=== PATIENT | female | born 1940 | race Caucasian/White ===

== ENCOUNTER 2017-09-22 14:51 | Emergency (ER) | payer MEDICARE, OTHER ==
[2017-09-22] MEDS ORDERED: Bacitracin Zinc 1 Packet ONE (15:18)
[2017-09-22] MEDS ORDERED: Adacel (T-DAP) 0.5 ML VIAL ONE (15:59)
--- NOTE | 2017-09-22 16:43 | RAD ---
THREE VIEWS OF THE LEFT HAND 09/22/17 COMPARISON: None. HISTORY: Trauma, pain. FINDINGS: There is a dislocation of the first MCP joint. The first proximal phalanx is dislocated laterally, an d proximally with respect to the head of the first metacarpal. Post reduction imaging is advised. The re is no displaced fracture. The bones appear demineralized. IMPRESSION: Dislocation of the first metacarpophalangeal joint. POS: [facility]
--- NOTE | 2017-09-22 16:43 | RAD ---
RIGHT KNEE FOUR VIEWS: 09/22/17 HISTORY: Injury, right knee pain. FINDINGS/IMPRESSION: No acute fracture or dislocation is identified. POS: [facility]
--- NOTE | 2017-09-22 16:58 | RAD ---
RADIOGRAPH RIGHT ELBOW 4 VIEWS: 09/22/17 at 3:49 p.m. HISTORY: 77-year-old female status post acute trauma to the right elbow. FINDINGS: There is soft tissue swelling containing multiple tiny focal lucencies in the soft tissues, dorsal to the proximal ulnar metadiaphysis. There is moderate to severe DJD at the capitelloradial articulatio n. There is diffuse osteopenia. There is no dislocation. No definite displaced fat pad sign. No fract ure is identified, but the osteopenia and the high grade DJD could mask a mildly displaced or nondisp laced fracture. IMPRESSION: 1. Acute, traumatic, soft tissue hematoma/contusion and probable laceration, at the dorsal proxi mal aspect of the forearm. 2. No dislocation, and no fracture identified. 3. 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 POS: [facility]
[2017-09-22] MEDS ORDERED: Acetaminophen 500 MG TAB ONE (19:15)
--- NOTE | 2017-09-22 21:09 | RAD ---
LEFT THUMB THREE VIEWS: HISTORY: Pain. Dislocation. COMPARISON: 09/22/2017 at 3:43 p.m. FINDINGS: Interval relocation of the previously identified dislocation. There is a plaster splint. A definite fracture is not appreciated. Bone demineralization is identified. IMPRESSION: Interval reduction of previously noted dislocation. POS: [facility]
== END 2017-09-22 23:02 | disposition home or self-care (01) ==
LOC: ERS 14:51
DX: S63.125A Dislocation of interphalangeal joint of left thumb, initial encounter (principal); S61.412A Laceration without foreign body of left hand, initial encounter; S80.01XA Contusion of right knee, initial encounter; E03.9 Hypothyroidism, unspecified; I10 Essential (primary) hypertension; Z79.899 Other long term (current) drug therapy; V89.2XXA Person injured in unspecified motor-vehicle accident, traffic, initial encounter
CPT/HCPCS: 12002; 26641; 90471; 90715

== ENCOUNTER 2018-02-22 10:08 | Outpatient (CLI) | payer MEDICARE, OTHER ==
--- NOTE | 2018-02-22 11:42 | RAD ---
THREE VIEWS LUMBOSACRAL SPINE: Comparison: 09-03-16 History: Low back pain for one year. Patient also has prior surgery with lumbar radiculopathy. FINDINGS: Lateral views of the lumbosacral spine were performed in the neutral, flexion, and extension. The pat ient is status post posterior fusion of L4 and L5 with bilateral pedicle screws. A disc space is seen in good position within the intervening disc space. No perihardware lucency is seen. Alignment is ma intained in flexion and extension. Vascular calcifications are seen in the aorta. IMPRESSION: Post-surgical changes of the lumbar spine with unchanged in alignment with bending. POS: [facility]
--- NOTE | 2018-02-22 12:55 | MRI ---
MRI LUMBAR SPINE NONCONTRAST: DATE: 02/22/18. HISTORY: 77-year-old female with M54.16, lumbar radiculopathy, and low back pain. COMPARISON: 09/03/16. FINDINGS: There are 5 lumbar-type vertebrae. Vertebral body heights are maintained. Mild to moderate disk spa ce narrowing at L4-5. No severe disk space narrowing at any level. No major bone marrow signal abno rmality identified. Multiple bilateral renal lesions, at least the vast majority of which are cysts. T12-L1: Essentially normal. L1-2: The conus medullaris terminates at this level. No high-grade central stenosis or high-grade n eural foraminal stenosis. L2-3: Mild diffuse disk bulge. Mild to moderate ligamentum flavum thickening and degenerative facet hypertrophy. Mild to moderate central spinal canal stenosis. Mild to moderate bilateral neural for aminal stenosis. L3-4: Moderate thickening of ligamentum flavum. Mild to moderate degenerative facet hypertrophy. M ild diffuse disk bulge. Mild to moderate bilateral neural foraminal stenosis. Moderate central spin al canal stenosis. L4-5: Bilateral pedicle screws at L4 and L5. Interbody cage material. Grade I anterolisthesis of L 4 on L5. Probable mild bilateral neural foraminal stenosis. Moderate to severe central spinal canal stenosis and high-grade lateral recess stenosis bilaterally. L5-S1: Severe bilateral degenerative facet hypertrophy. Mild right neural foraminal stenosis and mi ld to moderate left neural foraminal stenosis. No central stenosis. No interval change overall. IMPRESSION: 1. Grade I anterolisthesis of L4 on L5 stabilized by bilateral pedicle screws and interbody cage. 2. Moderate to severe central spinal canal stenosis at L4-5, and moderate central spinal canal steno sis at L3-4. 3. Large number of bilateral renal cysts. 4. No major interval change. LAURA Diehl POS: [facility]
== END 2018-02-22 10:09 | disposition home or self-care (01) ==
LOC: TBSIIMAG 10:08
PROVIDERS: ATTEND Neurological Surgery
DX: M54.16 Radiculopathy, lumbar region (principal); M43.16 Spondylolisthesis, lumbar region; M48.061 Spinal stenosis, lumbar region without neurogenic claudication; N28.1 Cyst of kidney, acquired
CPT/HCPCS: 72100; 72148

== ENCOUNTER 2018-04-30 09:01 | Outpatient (CLI) | payer MEDICARE, OTHER ==
[2018-04-30 11:06] LABS: Mean Corpuscular Hemoglobin 33.2 pg (27.0-31.0); Mean Corpuscular Volume 97.6 fL (78.0-98.0); Platelet Count 209 thou/uL (130-400); RBC Distribution Width 11.9 % (11.5-14.5); Red Blood Cell (RBC) Count 4.52 mill/uL (4.20-5.40); White Blood Cell (WBC) Count 7.1 thou/uL (4.8-10.8)
[2018-04-30 11:16] LABS: Prothrombin Time 13.6 SEC (12.0-14.7)
[2018-04-30 11:23] LABS: Anion Gap 15 mmol/L (10-20); BUN (Urea Nitrogen) 27 mg/dL (9.8-20.1); Calc. Creatinine Clearance 0 mL/min (70-130); Calcium 10.7 mg/dL (7.8-10.44); Carbon Dioxide 22 mmol/L (23-31); Chloride 107 mmol/L (98-107); Estimated GFR-MDRD 39; Glucose 99 mg/dL (83-110); Potassium 4.1 mmol/L (3.5-5.1); Sodium 140 mmol/L (136-145)
--- NOTE | 2018-04-30 13:37 | EKG ---
Test Reason : Blood Pressure : / mmHG Vent. Rate : 063 BPM Atrial Rate : 063 BPM P-R Int : 162 ms QRS Dur : 070 ms QT Int : 402 ms P-R-T Axes : 072 -18 022 degrees QTc Int : 411 ms Normal sinus rhythm Possible Anterior infarct , age undetermined Abnormal ECG Confirmed by MILDRED SHETH ([id number]) on 04/30/2018 1:36:51 PM Referred By: JANEEN Confirmed By:MILDRED SHETH
== END 2018-04-30 09:02 | disposition home or self-care (01) ==
LOC: LABBT 09:01
PROVIDERS: ATTEND Neurological Surgery
DX: Z01.812 Encounter for preprocedural laboratory examination (principal); M47.896 Other spondylosis, lumbar region; M48.061 Spinal stenosis, lumbar region without neurogenic claudication
CPT/HCPCS: 80048; 85027; 85610; 85730; 93005; 93010

== ENCOUNTER 2018-05-17 05:38 | Day surgery (SDC) | payer MEDICARE, OTHER ==
--- NOTE | 2018-05-17 02:20 | HP ---
CHIEF COMPLAINT: Back pain. HISTORY OF PRESENT ILLNESS: Ms. Martinez is a 76-year-old female who presents with low back pain. Dave cosby has seen Dr. Balderrama several times for back pain in the past. For over the past 6 months, she zafar s been experiencing pain in her low back over her SI joints, left greater than right. Does not have any radicular symptoms. The left greater trochanteric bursa has also been very sore when palpated. She has a history of L4-L5 fusion with Dr. Subramanian in 2006. Her pain is made better by lying down o r sitting. She has significant pain going on. The patient has a history of L4-L5 fusion with Dr. Kal wilder in 2006. Her pain is made better by lying or sitting down. She has significant pain going fr om sitting to standing position. She has had PT about 7 years ago and has had many IDALMIS injections fo r her low back pain from Dr. Mejia, which helped significantly. When she stands for a long perio d of time, she has minimal pain in the gluteal muscles bilaterally, but the pain that makes her sit d own comes from the low back and SI joints. REVIEW OF SYSTEMS: Ten point review of systems completed, which is otherwise negative than stated ab ove. PAST MEDICAL HISTORY: Hypertension, hyperlipidemia, hypothyroidism, multiple sclerosis, Christiano's thyroiditis, high blood pressure, vitamin D deficiency, stroke in 10/2000. PAST SURGICAL HISTORY: Lumbar fusion in [address] Subramanian, left revision shoulder replacement in 2010, right hip replacement in 2009, right medial and lateral mastectomy, grade II chondromalacia, me niscectomy in 2010 and right lateral meniscectomy in 2015. FAMILY HISTORY: Father is . Mother is . Family history of hypertension, cancer. SOCIAL HISTORY: The patient is a nonsmoker. She does not drink alcohol or use any other illicit ilene gs. She is and has 2 children. 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 MEDICATIONS: Ibuprofen, potassium bicarbonate, citric acid, Synthroid, Toprol, Benicar, vitamin B12, and sodium. ALLERGIES: BACTRIM, BENADRYL, CELEBREX, CODEINE SULFATE, DILANTIN, LIPITOR, LORTAB ULTRAM. PHYSICAL EXAMINATION: HEENT: Head is normocephalic, atraumatic. Hearing is intact. Moist mucous membranes. Trachea is m idline. No masses are noted. EYES: Pupils are equal, round, reactive to light. Extraocular movements are intact. Sclerae is not injected, nonicteric. PSYCHIATRIC: Normal mood and affect. PULMONARY: Normal work of breathing room air. CARDIOVASCULAR: Regular rate and rhythm. MUSCULOSKELETAL: Lower extremities, 5/5 strength in bilateral iliopsoas, quadriceps, hamstrings, rig ht tibialis anterior and extensor hallucis longus. No sensory deficits bilaterally. Very tender to palpation on the left greater than right SI joints and right greater trochanteric bursa. Gait and st ation, patient is only able to stand for 1-2 minutes before onset of the gluteal pains. Motor exam: There is normal strength. Sensory exam: Stocking distribution sensory alteration bilateral. NEUROLOGIC: Patient is alert and oriented. Cranial nerves II through XII are grossly intact. Speec h is fluent. Answers questions appropriately. IMAGING DATA: MRI monitored lateral recess stenosis L3-L4, severe lateral recess stenosis at L4-5, p rior instrumentation, L4-L5 without decompression. X-rays, no instability. ASSESSMENT: Spondylosis without myelopathy, radiculopathy, lumbar region, spinal stenosis in lumbar region without neurogenic claudication. PLAN: Dr. Balderrama has offered laminectomy L3 through 5. Informed consent again discussed indicati ons, risks, benefits, alternatives, and expected results from surgery. The risks discussed included, but are not limited to bleeding, infection, CSF leak, nerve damage, weakness, incontinence, cauda eq uina injury, arachnoiditis, paralysis, ventilator dependence, wheelchair dependence, loss of vision, cardiopulmonary complications of anesthesia or , long-term complications discussed included, bu t were not limited to spinal instability and future surgery. Patient understands the risks and is wi lling to proceed with surgery.
[2018-05-17] MEDS ORDERED: CEFAZOLIN/Water 2 GM/20 ML SYRINGE ONE ×2 (06:15→13:02)
[2018-05-17] MEDS ORDERED: Thrombin 5000 UNITS/5 ML VIAL ONE (06:17)
[2018-05-17] MEDS ORDERED: Bupivacaine HCl 0.5%/Epinephrine 1:200,000/PF 30 ml Vial ONE (06:17)
[2018-05-17] MEDS ORDERED: Sodium Chloride 0.9% 10 ML ONE (06:17)
[2018-05-17] MEDS ORDERED: Fentanyl 100 MCG/2 ML VIAL ONE ×2 (06:46→10:25)
[2018-05-17] MEDS ORDERED: SUGAMMADEX SODIUM 500 MG/5 ML VIAL ONE (08:24)
[2018-05-17] MEDS ORDERED: PHENYLEPHRINE-NS 100 MCG/ML 10 ML SYRINGE ONE ×2 (09:12→15:07)
--- NOTE | 2018-05-17 11:44 | OP ---
DATE OF PROCEDURE: 05/17/2018 SURGEON: Stan Balderrama M.D. DESIGN ENGINEERING INTERN: Ladonna Marquez PA-C. PREOPERATIVE INDICATION: Treat pain, prevent neurological deterioration. PREOPERATIVE DIAGNOSES: Prior lumbar spine fusion surgery, elsewhere, residual stenosis at L3-L4 and L4-L5 with neurogenic claudication. POSTOPERATIVE DIAGNOSES: Prior lumbar spine fusion surgery, elsewhere, residual stenosis at L3-L4 an d L4-L5 with neurogenic claudication. OPERATIVE PROCEDURE: Reopening of lumbar incision, laminectomy, medial facetectomy and foraminotomy at L3-L4 and L4-L5, operating microscope. PREOPERATIVE MEDICATIONS: Ancef 2 g IV. DRAIN NUMBER: Zero. DRAIN TYPE: None. PROCEDURE IN DETAIL: The patient was brought to the operating room. General endotracheal anesthesia was induced. The patient was positioned prone on the operating table with her chest and hips suppor kei by gel-filled chest rolls. A lateral fluoro radiograph was used to plan our incision. The lumba r skin was sterilely prepped and draped. We opened a midline incision between her 2 lateral incision s with a 10 blade knife. We controlled bleeding with bipolar and monopolar cautery. We used monopol ar cautery to dissect through the subcutaneous tissues to the thoracodorsal fascia. We incised the f ascia in the midline and we reflected the paraspinal muscles off the spinous process and lamina of L3 , L4 and L5. A self-retaining retractor was placed. We then used an Adson rongeur to remove the spi nous process of L3, L4 and the superior portion of L5. With high-speed drill, we thinned the lamina. Kerrison rongeurs were used to fashion our laminectomy. We widened our laminectomy defect until we were flush with the L3, L4 and L5 pedicles. We made sure the L4 nerve roots were decompressed in th e lateral recesses and out the foramina. In a similar fashion, we performed a lateral recess decompr ession at L4-L5 to ensure the L5 nerve roots were well decompressed in their foramina and out the for amen. Much of the work at L4-L5 was done with the operating microscope and a high-speed drill and wi th microsurgical techniques. We irrigated copiously with bacitracin irrigation. After our decompres suyapa was secured, we waxed the bone edges. We controlled ventral epidural bleeding with gentle bipol ar cautery. We left 1 pledget of Gelfoam. We irrigated the wound with bacitracin irrigation and we treated it with vancomycin powder. We closed the wound in anatomic layers and we applied a sterile d ressing. This was a clean case and no contamination.
[2018-05-17] MEDS ORDERED: ePHEDrine/0.9% NaCl/PF SYRINGE 50 mg/10 ml ONE (15:07)
[2018-05-17] MEDS ORDERED: PROPOFOL 200 MG/20 ML VIAL ONE (15:07)
[2018-05-17] MEDS ORDERED: Ondansetron HCl/PF 4 MG/2 ML Vial ONE (15:07)
[2018-05-17] MEDS ORDERED: Lidocaine 1% PF 5 ML VIAL ONE (15:07)
[2018-05-17] MEDS ORDERED: Dexamethasone 20 MG/5 ML VIAL ONE (15:07)
== END 2018-05-17 12:30 | disposition home or self-care (01) ==
LOC: SDC 05:38
PROVIDERS: ATTEND Neurological Surgery
PROC: 01NB0ZZ Release Lumbar Nerve, Open Approach (ICD-10-PCS; principal; 2018-05-17)
DX: M48.062 Spinal stenosis, lumbar region with neurogenic claudication (principal); M47.816 Spondylosis without myelopathy or radiculopathy, lumbar region; I10 Essential (primary) hypertension; E78.5 Hyperlipidemia, unspecified; E03.9 Hypothyroidism, unspecified; G35 Multiple sclerosis; E55.9 Vitamin D deficiency, unspecified; Z88.2 Allergy status to sulfonamides; Z88.5 Allergy status to narcotic agent; Z88.8 Allergy status to other drugs, medicaments and biological substances; Z91.041 Radiographic dye allergy status; Z79.899 Other long term (current) drug therapy; Z88.1 Allergy status to other antibiotic agents
CPT/HCPCS: 76001; 96374; 96375; A4216; J0670; J1100; J2001; J2405; J2704; J3010; J3370; J3490

== ENCOUNTER 2018-05-19 10:14 | Emergency (ER) | payer MEDICARE, OTHER ==
--- NOTE | 2018-05-19 11:31 | RAD ---
RIGHT KNEE 4 VIEWS: Date: 05/19/18 HISTORY: 77-year-old female with right knee pain. History of degenerative disease. COMPARISON: 09/22/17. FINDINGS: Tricompartment degenerative and osteoarthrosis changes are noted. No evidence for acute fracture or d islocation. Minimal diffuse fullness of the subcutaneous tissues with some subcutaneous fat stranding , which appears more prominent than on the prior study. No fracture or dislocation. IMPRESSION: Degenerative changes without acute fracture or dislocation. POS: [facility]
== END 2018-05-19 13:15 | disposition home or self-care (01) ==
LOC: ERS 10:14
DX: M17.11 Unilateral primary osteoarthritis, right knee (principal); G89.29 Other chronic pain; E03.9 Hypothyroidism, unspecified; E78.5 Hyperlipidemia, unspecified; I10 Essential (primary) hypertension; Z86.73 Personal history of transient ischemic attack (TIA), and cerebral infarction without residual deficits; Z79.899 Other long term (current) drug therapy

== ENCOUNTER 2018-06-02 07:39 | Outpatient (CLI) | payer MEDICARE, OTHER ==
--- NOTE | 2018-06-02 11:23 | MRI ---
MRI RIGHT KNEE PERFORMED WITHOUT CONTRAST ENHANCEMENT: HISTORY: Right knee pain. History of previous surgery. COMPARISON: 02/19/2016 examination. FINDINGS: The anterior, as well as posterior cruciate ligaments are intact. The medial meniscus has a relatively similar appearance to the previous examination. There is blunti ng to the posterior horn, near the meniscal root, and an obliquely oriented area of undersurface sign al change involving the more medial side of the posterior horn. I do not appreciate that these white es are substantially different than the prior study. There has been development of marrow edema oh ges involving the tibia posteriorly in this region, which is compatible with some stress type reactio n. There is what is felt to be a developing insufficiency fracture with some slight T1 lucency near the fused epiphyseal plate. There has been a definite change in the appearance of the lateral meniscus. On the current examinati on, the anterior horn is absent. There is a truncated appearance to the body of the lateral meniscus , fairly similar to the prior examination. The posterior horn appears intact. It is somewhat bulky in appearance, but I do not see a definite flipped meniscal fragment to explain the anterior horn fin dings and would suspect that the anterior horn findings are on the basis of previous surgery. There are subchondral marrow edema changes related to articular cartilage loss on the lateral side of the t ibia. These changes are more posterior. The patellar articular cartilage shows some articular cartilage loss of the lateral facet. The media l and lateral patellar retinaculum are intact. There is patellar tendinosis noted near the attachmen t on the inferior pole of the patella. The medial and lateral collateral ligament and iliotibial band regions appear unremarkable. An anterior tibial bone contusion is seen on the medial side of the tibia. IMPRESSION: 1. Arthritic changes of the knee. 2. The changes of the posterior horn, medial meniscus, are felt to be essentially stable, as compare d to the prior examination. There has been development of some marrow edema changes, which involve b oth the anterior articular surface of the tibia and posteriorly, suggesting some stress type reaction and possibly areas that are developing insufficiency type fractures. 3. There is now absence of the anterior horn of the lateral meniscus. The severely truncated body o f the lateral meniscus is a fairly similar finding. I would presume that these changes are on the ba sis of meniscectomy change. I do not see a definite flipped meniscal fragment. The posterior horn i s somewhat bulky in appearance, but I cannot see a separation that would suggest a definite flipped f ragment. Clinical correlation as to whether there has been surgery. 4. Patellar tendinosis. POS: [facility]
== END 2018-06-02 07:40 | disposition home or self-care (01) ==
LOC: TBSIIMAG 07:39
PROVIDERS: ATTEND Orthopaedic Surgery
DX: M23.91 Unspecified internal derangement of right knee (principal); M76.51 Patellar tendinitis, right knee; M17.11 Unilateral primary osteoarthritis, right knee

== ENCOUNTER 2018-07-20 08:27 | Outpatient (CLI) | payer MEDICARE, OTHER ==
--- NOTE | 2018-07-20 09:34 | RAD ---
LUMBAR SPINE TWO VIEWS: History: Low back pain. Surgery. Comparison: 02-22-18 FINDINGS: Posterior fixation at the L4-5 level is again demonstrated with surgical absence of the posterior marycarmen ments. No perihardware lucency. Disc space narrowing and minimal spondylolisthesis at the post-operat everette level is unchanged in appearance. Osteophytosis throughout the facets. Vertebral body heights are maintained. Alignment otherwise intac t. Osseous structures are demineralized. Prominent arterial calcification. IMPRESSION: 1. Stable post-operative fixation of the lower lumbar spine. 2. Spondylosis. No evidence of compression fracture. 3. Atherosclerosis. 4. Osteoporosis. POS: [facility]
== END 2018-07-20 08:28 | disposition home or self-care (01) ==
LOC: TBSIIMAG 08:27
PROVIDERS: ATTEND Neurological Surgery
DX: M48.061 Spinal stenosis, lumbar region without neurogenic claudication (principal); M47.896 Other spondylosis, lumbar region; I70.90 Unspecified atherosclerosis; M81.0 Age-related osteoporosis without current pathological fracture; Z98.890 Other specified postprocedural states
CPT/HCPCS: 72100

== ENCOUNTER 2018-11-18 07:51 | Outpatient (CLI) | payer MEDICARE, OTHER ==
[2018-11-18 13:58] LABS: #Basophils 0.1 thou/uL (0.0-0.2); #Eosinphils 0.3 thou/uL (0.0-0.7); #Lymphocytes 1.2 thou/uL (1.20-3.40); #Monocytes 0.8 thou/uL (0.11-0.59); #Neutrophils 6.4 thou/uL (1.40-6.50); %Basophils 0.7 % (0.0-1.0); %Eosinophils 2.9 % (0.0-10.0); %Monocytes 9.5 % (0.0-10.0); %Neutrophils 72.9 % (42.0-75.0); Hemoglobin 14.1 g/dL (12.0-16.0); Mean Corpuscular HGB CONC 33.1 g/dL (32.0-36.0); Mean Corpuscular Hemoglobin 32.6 pg (27.0-31.0); Mean Corpuscular Volume 98.6 fL (78.0-98.0); Mean Platelet Volume 8.2 fL (7.4-10.4); Platelet Count 226 thou/uL (130-400); RBC Distribution Width 12.6 % (11.5-14.5); Red Blood Cell (RBC) Count 4.33 mill/uL (4.20-5.40); White Blood Cell (WBC) Count 8.8 thou/uL (4.8-10.8)
[2018-11-18 14:02] LABS: Bilirubin Negative (Negative); Blood, Urine Moderate (Negative); Clarity CLOUDY (Clear); Glucose, Urine (Dipstick) Negative (Negative); Leukocyte Large (Negative); Nitrite Positive (Negative); Protein, Urine (Dipstick) Trace mg/dL (Neg-Trace); Specific Gravity, Urine 1.014 (1.002-1.036); Urobilinogen 0.2 mg/dL (0.2-1.0)
[2018-11-18 14:04] LABS: Prothrombin Time 13.1 SEC (12.0-14.7)
[2018-11-18 14:06] LABS: Bacteria/HPF 1+ HPF (None Seen); Hyaline Casts/LPF 0-3 HYALINE CAST LPF (0-3 Hyaline); Pathc Cast-AUWi Flag 0.29 (0-2.49); Squamous Epithelial 0-3 HPF (0-3)
--- NOTE | 2018-11-18 14:06 | RAD ---
PA AND LATERAL CHEST: History: Pre op. FINDINGS: Heart size within normal limits. There are arthrosclerotic changes of the aorta. Lungs are clear of i nfiltrates. A left humeral prosthesis is partially visualized. IMPRESSION: No active intrathoracic disease. POS: [facility]
[2018-11-18 14:16] LABS: Anion Gap 15 mmol/L (10-20); BUN (Urea Nitrogen) 27 mg/dL (9.8-20.1); Calc. Creatinine Clearance 0 mL/min (70-130); Calcium 10.1 mg/dL (7.8-10.44); Carbon Dioxide 24 mmol/L (23-31); Chloride 105 mmol/L (98-107); Estimated GFR-MDRD 46; Glucose 97 mg/dL (83-110); Potassium 3.2 mmol/L (3.5-5.1); Sodium 141 mmol/L (136-145)
--- NOTE | 2018-11-18 17:11 | EKG ---
Test Reason : Blood Pressure : / mmHG Vent. Rate : 063 BPM Atrial Rate : 063 BPM P-R Int : 162 ms QRS Dur : 076 ms QT Int : 402 ms P-R-T Axes : 035 -16 024 degrees QTc Int : 411 ms Poor data quality, interpretation may be adversely affected Normal sinus rhythm Normal ECG When compared with ECG of 30-APR-2018 10:13, No significant change was found Confirmed by TUTU SANDERS, . SGil ([id number]) on 11/18/2018 5:11:27 PM Referred By: TRISH Confirmed By:DR. Erica CAM MD
== END 2018-11-18 07:52 | disposition home or self-care (01) ==
LOC: LABBT 07:51
PROVIDERS: ATTEND Orthopaedic Surgery
DX: Z01.818 Encounter for other preprocedural examination (principal); M17.11 Unilateral primary osteoarthritis, right knee
CPT/HCPCS: 71046; 80048; 81001; 82947; 85025; 85610; 87081; 93005; 93010

== ENCOUNTER 2018-11-26 09:30 | Outpatient (CLI) | payer MEDICARE, OTHER | END 2018-11-26 09:31 | disposition home or self-care (01) | LOC: LABBT 09:30 | PROVIDERS: ATTEND Orthopaedic Surgery | DX: Z01.812 Encounter for preprocedural laboratory examination (principal); M17.11 Unilateral primary osteoarthritis, right knee | CPT/HCPCS: 86850; 86900; 86901 ==

== ENCOUNTER 2018-11-30 06:14 | Inpatient (IN) | payer MEDICARE, OTHER ==
[2018-11-18 12:42] VITALS: BMI 26.5
[2018-11-30] MEDS ORDERED: Midazolam HCl 2 mg/2 ml Vial ONE (06:19)
[2018-11-30] MEDS ORDERED: Ropivacaine 0.2% HCl/PF 20 ML ONE (06:19)
[2018-11-30] MEDS ORDERED: Fentanyl 100 MCG/2 ML VIAL ONE ×2 (06:19→11:39)
[2018-11-30] MEDS ORDERED: CEFAZOLIN 2 GM/50 ML BAG ONE (06:37)
[2018-11-30] MEDS ORDERED: Tranexamic Acid 1,000 MG/10 ML VIAL ONE (06:37)
[2018-11-30] MEDS ORDERED: Lidocaine 1% (PF) 30 ML VIAL ONE (08:13)
[2018-11-30] MEDS ORDERED: HYDROcodone/Acetaminophen 10/325 mg Tablet PO PRN (08:56)
[2018-11-30] MEDS ORDERED: diphenhydrAMINE 25 MG CAP PO PRN (08:56)
[2018-11-30] MEDS ORDERED: Zolpidem Tartrate 5 MG TAB PO PRN ×2 (08:56→09:41)
[2018-11-30] MEDS ORDERED: Promethazine HCl 25 MG/ML VIAL IM PRN ×3 (08:56→10:12)
[2018-11-30] MEDS ORDERED: Ondansetron PF 4 MG/2 ML Vial IVP PRN ×2 (08:56→09:41)
[2018-11-30] MEDS ORDERED: Acetaminophen 325 MG TAB PO PRN (08:56)
[2018-11-30] MEDS ORDERED: Ibuprofen 600 MG TAB PO PRN (08:59)
[2018-11-30] MEDS ORDERED: [UNRECOGNIZED DRUG - OTHER] PO SCH (09:00)
[2018-11-30] MEDS ORDERED: CEFAZOLIN/Water 2 GM/20 ML SYRINGE SLOW IVP SCH (09:00)
[2018-11-30] MEDS ORDERED: cloNIDine 0.1mg/24 Hour PATCH TD SCH (09:00)
[2018-11-30] MEDS ORDERED: Ropivacaine HCl/PF 250 ML in Premix Bag 1 BAG NERVE BLCK SCH (09:41)
[2018-11-30] MEDS ORDERED: Fentanyl 100 MCG/2 ML VIAL IV PRN (09:42)
[2018-11-30] MEDS ORDERED: Ondansetron HCl/PF 4 MG/2 ML Vial IVP PRN (10:12)
[2018-11-30] MEDS ORDERED: Ropivacaine 0.5% HCl/PF (150 MG/30 ML VIAL) ONE (10:12)
[2018-11-30] MEDS ORDERED: Promethazine HCl 25 MG/ML VIAL SLOW IVP PRN (10:12)
[2018-11-30] MEDS ORDERED: Ropivacaine 0.2% HCl/PF (40 MG/20 ML VIAL) ONE (10:12)
[2018-11-30] MEDS ORDERED: PROPOFOL 200 MG/20 ML VIAL ONE (10:56)
[2018-11-30] MEDS ORDERED: Lidocaine 1% PF 5 ML VIAL ONE (10:56)
[2018-11-30] MEDS ORDERED: Ondansetron PF 4 MG/2 ML Vial ONE (10:56)
--- NOTE | 2018-11-30 12:09 | OP ---
DATE OF PROCEDURE: 11/30/2018 PREOPERATIVE DIAGNOSIS: Degenerative joint disease, right knee. POSTOPERATIVE DIAGNOSIS: Degenerative joint disease, right knee. PROCEDURE PERFORMED: Right total knee arthroplasty using Juan Antonio triathlon 4 femur, 4 tibia, 9 mm CS X3 polyethylene, and A29 patella. MAKE UP WORKER: Selena Grant PA-C ESTIMATED BLOOD LOSS: Minimal. SPECIMENS: None. DRAINS: None. COMPLICATIONS: None. PROCEDURE IN DETAIL: After informed consent was obtained in the preoperative holding area, the patient was taken to the operative suite where general anesthesia was induced. Once adequate level of general anesthesia was obtained, the patient was positioned and a well-padded tourniquet was placed around the right proximal thigh. The right lower extremity was then prepped and draped in the usual sterile fashion. Prior to exsanguination, a time-out was called and all members of the surgical team agreed upon site, surgeon, and patient. The extremity was then exsanguinated and the tourniquet was raised. A midline longitudinal incision was then made directly over the patella extending 2 fingerbreadths above the superior pole of the patella and 2 fingerbreadths inferior to the inferior patellar pole of the patella. Deeper subcutaneous layers were dissected sharply and local bleeding was controlled with Bovie electrocautery. A quad tendon longitudinal split was then made sharply and a median parapatellar arthrotomy was carried out both sharp and with Bovie electrocautery, carried down to 1 fingerbreadth medial to the tibial tubercle. The knee was then placed into flexion and the patella was everted nicely, and a copious fat pad ectomy was performed allowing for greater exposure of the tibia. The computer-assisted distal femoral fiducial was then placed and pinned firmly, and the distal femoral cutting guide was pinned firmly into place. The oscillating saw was then used to remove the appropriate amount of bone. The 4-in-1 cutting block was then placed on the distal femur and the oscillating saw was used to remove the appropriate amount of bone off the anterior, posterior, and chamfer cuts. After completion of bone cuts, the anterior cruciate ligament was resected sharply and the posterior cruciate ligament retractor was placed and the tibia was subluxed for better exposure. Partial meniscectomies were carried out, and the tibial computer-assisted fiducial was pinned, and the cutting guide was placed. Oscillating saw was then used to remove the bone, with Hohmann retractors used to take care and protect the collateral ligaments. After the tibial resection was performed, a laminar carcass splitter was placed in between the freshened bone cuts. The knee placed at 90 degrees and further bilateral meniscectomies were carried out, and the curved osteotome and curettage were used to remove any excess bone spurs in the posterior compartment. The trial femoral component, tibial baseplate were placed with the appropriate polyethylene trial insert with an appropriate polyethylene spacer and patellar button. The knee was taken through full range of motion with flexion and extension from 0 to 90 degrees and patellar broach squarely in the trochlea without any squinting or subluxation noted. The knee was also stable to varus and valgus stressing at 0, 15, 45, and 90 degrees of flexion. The drawer was negative. All trial components were then removed and the keel punch was used to provide the appropriate defect in the tibia with a mallet. The freshened bone cuts were copiously irrigated with pulsatile lavage of about 1.5 L to remove all excess debris. The freshened bone cuts were then dried with suction and lap sponge. The knee was placed in flexion and retractors were placed to provide access to all bone cuts. Tobramycin-impregnated methyl methacrylate cement was then placed on the freshened bone cuts and implants which were malleted firmly into place. Curettage and [place] elevators were used to remove any excess bone cement. The knee was placed into full extension and the patellar button was placed under compression, and the cement was allowed to cure. Once completed, the components were again taken through full range of motion and copious irrigation of the knee was carried out with another liter of normal saline. All components were inspected fully with full range of motion and varus and valgus stressing. There was no laxity noted and full extension was observed clinically. Primary closure was accomplished with #2 interrupted Vicryl stitch of the arthrotomy defect. This was oversewn with a #2 running Quill barbed stitch. The gravitational platelet system was then injected into the arthrotomy prior to closure. The subcutaneous layer was then closed with a running 0 barbed Monocryl stitch and skin closure accomplished with a running subcuticular 3-0 Monocryl barbed Quill stitch and augmented with cement on the skin. Tourniquet was lowered. Good spontaneous return of distal pulses was noted clinically and a sterile dressing was applied to the incision. The procedure was terminated without any complications. The patient was awakened in the operative suite and the patient was taken to the recovery room in stable condition. Job ID: [id number]
--- NOTE | 2018-11-30 13:34 | RAD ---
RIGHT KNEE TWO VIEWS: History: Post op knee. Comparison: 05-19-18 FINDINGS: Satisfactory post-operative appearance of right total knee arthroplasty and patellar resurfacing. Exp ected post-operative gas and edema. Mild vascular calcifications. IMPRESSION: Satisfactory post-operative right knee. POS: [facility]
[2018-11-30] MEDS: Amlodipine 5 MG TAB PO SCH (14:27)
[2018-11-30] MEDS: Sodium Chloride 0.9% 1,000 ML IV SCH ×2 (14:27→16:11)
[2018-11-30] MEDS: Acetaminophen 325 MG TAB PO SCH ×3 (14:28→20:25)
[2018-11-30] MEDS: Ibuprofen 600 MG TAB PO SCH ×2 (14:28→17:55)
[2018-11-30] MEDS ORDERED: Bisacodyl 5 MG TAB PO PRN (14:51)
[2018-11-30] MEDS ORDERED: Diabetic Tussin 200 MG/10 ML UDCUP PO PRN (14:51)
[2018-11-30] MEDS ORDERED: Nitroglycerin 0.4 MG TAB (25 Tab Bottle) SL PRN (14:51)
[2018-11-30] MEDS ORDERED: Acetaminophen 500 MG TAB PO PRN (14:51)
[2018-11-30] MEDS ORDERED: hydrALAZINE 20 MG/ML VIAL SLOW IVP PRN (14:51)
[2018-11-30] MEDS ORDERED: Benzonatate 100 MG CAP PO PRN (14:51)
[2018-11-30] MEDS ORDERED: cloNIDine 0.1 MG TAB PO PRN (14:51)
[2018-11-30] MEDS: CEFAZOLIN 2 GM/50 ML-DEXTROSE 2 GM in Premix Bag 1 BAG IVPB SCH (15:21)
[2018-11-30] MEDS: HYDROcodone/Acetaminophen 10/325 mg Tablet PO PRN (15:21)
--- NOTE | 2018-11-30 15:34 | PDOC.PN ---
- Subjective Encounter Start Date: 11/30/18 Encounter Start Time: 15:33 Subjective: s/p R total knee today. feels well. no CP/SOB/N/V/D/Abd pain -: chart reviewed.PCP Dr. Jean. - Objective MAR Reviewed: Yes Vital Signs & Weight: Vital Signs (12 hours) Temp Pulse Resp BP Pulse Ox 11/30/18 14:27 58 L 11/30/18 14:14 97 11/30/18 13:45 97.9 F 58 L 18 110/71 97 Weight Weight 150 lb Additional Labs: Laboratory Tests 08/25/12 02/25/16 04/30/18 11:02 12:00 10:57 WBC Hgb Plt Count INR Sodium Serum Potassium 3.4 L BUN Creatinine 1.59 H 1.45 H 1.33 H Urine Bacteria 11/18/18 11/18/18 11/18/18 12:45 12:45 12:45 WBC 8.8 Hgb 14.1 Plt Count 226 INR 1.0 Sodium 141 Serum Potassium BUN 27 H Creatinine 1.14 H Urine Bacteria 11/18/18 12:45 WBC Hgb Plt Count INR Sodium Serum Potassium BUN Creatinine Urine Bacteria 1+ H Phys Exam - Physical Examination Constitutional: NAD HEENT: PERRLA, moist MMs, sclera anicteric, oral pharynx no lesions Neck: no nodes, no JVD, supple, full ROM Respiratory: no wheezing, no rales, no rhonchi, clear to auscultation bilateral Cardiovascular: RRR, no significant murmur Gastrointestinal: soft, non-tender, no distention, positive bowel sounds Musculoskeletal: no edema, pulses present Neurological: non-focal, normal sensation, moves all 4 limbs Psychiatric: normal affect, A&O x 3 Skin: no rash Dx/Plan (1) HTN (hypertension) Code(s): I10 - ESSENTIAL (PRIMARY) HYPERTENSION Status: Chronic (2) HLD (hyperlipidemia) Code(s): E78.5 - HYPERLIPIDEMIA, UNSPECIFIED Status: Chronic (3) Hypothyroid Code(s): E03.9 - HYPOTHYROIDISM, UNSPECIFIED Status: Chronic (4) H/O: CVA (cerebrovascular accident) Code(s): Z86.73 - PRSNL HX OF TIA (TIA), AND CEREB INFRC W/O RESID DEFICITS Status: Chronic - Plan PT/OT, out of bed/ambulate, DVT proph w/SCDs cont home meds. hemodynamically stable. -: ASA bid for DVt prophylaxis. -: am labs -: IM team will follow * . Review of Systems - Review of Systems Constitutional: negative: fever, chills, sweats, weakness, malaise, other ENT: negative: Ear Pain, Ear Discharge, Nose Pain, Nose Discharge, Nose Congestion, Mouth Pain, Mouth Swelling, Throat Pain, Throat Swelling, Other Respiratory: negative: Cough, Dry, Shortness of Breath, Hemoptysis, SOB with Excertion, Pleuritic Pain, Sputum, Wheezing Cardiovascular: negative: chest pain, palpitations, orthopnea, paroxysmal nocturnal dyspnea, edema, light headedness, other Gastrointestinal: negative: Nausea, Vomiting, Abdominal Pain, Diarrhea, Constipation, Melena, Hematochezia, Other Genitourinary: negative: Dysuria, Frequency, Incontinence, Hematuria, Retention , Other Musculoskeletal: negative: Neck Pain, Shoulder Pain, Arm Pain, Back Pain, Hand Pain, Leg Pain, Foot Pain, Other Skin: negative: Rash, Lesions, Derrek, Bruising, Other Neurological: negative: Weakness, Numbness, Incoordination, Change in Speech, Confusion, Seizures, Other - Medications/Allergies Allergies/Adverse Reactions: Allergies Allergy/AdvReac Type Severity Reaction Status Date / Time allopurinol Allergy Severe Verified 11/18/18 12:44 atorvastatin calcium Allergy Severe Verified 11/18/18 12:44 [From Lipitor] celecoxib [From Celebrex] Allergy Severe Verified 11/18/18 12:44 codeine Allergy Severe Verified 11/18/18 12:44 Sulfa (Sulfonamide Allergy Severe Verified 11/18/18 12:44 Antibiotics) diphenhydramine HCl Allergy Intermediate Verified 11/18/18 12:44 [From Benadryl] phenytoin sodium Allergy Intermediate Verified 11/18/18 12:44 [From Dilantin] phenytoin sodium extended Allergy Intermediate Verified 11/18/18 12:44 [From Dilantin] tramadol HCl [From Ultram] Allergy Intermediate Verified 11/18/18 12:44 pentazine Allergy Severe Uncoded 11/18/18 12:44 myelogram dye Allergy Intermediate Uncoded 11/18/18 12:44 Medications: Current Medications Acetaminophen (Tylenol) 650 mg PO Q4HR [facility] Last Admin: 11/30/18 15:26 Dose: Not Given Acetaminophen (Tylenol) 1,000 mg PO Q6H PRN PRN Reason: Mild Pain (1-3) Hydrocodone Bitart/Acetaminophen ([place] 10/325) 1 tab PO Q4H PRN PRN Reason: Pain (1-3) Hydrocodone Bitart/Acetaminophen ([place] 10/325) 2 tab PO Q4H PRN PRN Reason: PAIN (4-6) Last Admin: 11/30/18 15:21 Dose: 2 tab Amlodipine Besylate (Norvasc) 5 mg PO QAM [facility] Last Admin: 11/30/18 14:27 Dose: Not Given Aspirin (Ecotrin) 81 mg PO BID [facility] Benzonatate (Tessalon) 100 mg PO Q6H PRN PRN Reason: Cough Bisacodyl (Dulcolax) 10 mg PO DAILYPRN PRN PRN Reason: Constipation Candesartan Cilexetil (Atacand) 32 mg PO QAM [facility] Cholecalciferol (Vitamin D3) 2,000 units PO QAM [facility] Clonidine (Wycephyt-Lia-1 Patch) 0.1 mg TD Q7D [facility] Last Admin: 11/30/18 14:27 Dose: Not Given Clonidine (Catapres) 0.1 mg PO Q4H PRN PRN Reason: SBP > _160___ Diphenhydramine HCl (Benadryl) 25 mg PO Q6H PRN PRN Reason: Itching Fentanyl (Sublimaze) 50 mcg IV Q1H PRN PRN Reason: BREAKTHROUGH PAIN Ferrous Gluconate (Fergon) 324 mg PO BID [facility] Guaifenesin (Robitussin Sf) 200 mg PO Q4H PRN PRN Reason: Cough Hydralazine HCl (Apresoline) 10 mg SLOW IVP Q4H PRN PRN Reason: SBP > 180 and HR < 70 Hydrochlorothiazide (Hydrochlorothiazide) 12.5 mg PO DAILY [facility] Sodium Chloride (Normal Saline 0.9%) 1,000 mls @ 100 mls/hr IV .Q10H [facility] Last Admin: 11/30/18 14:27 Dose: 1,000 mls Ropivacaine 250 ml/ Device 250 mls @ 0 mls/hr NERVE BLCK INF [facility] Cefazolin Sodium/Dextrose 2 gm (/ Device) 50 mls @ 100 mls/hr IVPB 0800,1600, 2359 [facility] Stop: 12/01/18 00:28 Last Admin: 11/30/18 15:21 Dose: 50 mls Ibuprofen (Motrin) 600 mg PO Q6HR [facility] Last Admin: 11/30/18 14:28 Dose: Not Given Iron/Minerals/Multivitamins (Theragran M) 1 tab PO DAILY [facility] Levothyroxine Sodium (Synthroid) 100 mcg PO 0600 [facility] Liothyronine Sodium (Cytomel) 5 mcg PO BID [facility] Lovastatin (Mevacor) 40 mg PO HS [facility] Metoprolol Succinate (Toprol Xl) 100 mg PO BID [facility] Mirabegron (Myrbetriq Er) 25 mg PO QAM [facility] Nitroglycerin (Nitrostat) 0.4 mg SL Q5MIN PRN PRN Reason: Chest Pain Ondansetron HCl (Zofran) 4 mg IVP Q6H PRN PRN Reason: Nausea/Vomiting Vit B12/Folic Acid/B6/Aa No.15 [ Glycotrol Capsule] 1 Cap 0 each PO QAM [facility] Potassium Chloride (K-Dur) 20 meq PO DAILY [facility] Promethazine HCl (Phenergan) 12.5 mg IM Q4H PRN PRN Reason: Nausea Senna/Docusate Sodium (Senokot S) 2 tab PO BID [facility] Sodium Chloride (Flush - Normal Saline) 10 ml IVF PRN PRN PRN Reason: Saline Flush Zolpidem Tartrate (Ambien) 5 mg PO HSPRN PRN PRN Reason: Insomnia
[2018-11-30 17:25] LABS: Bilirubin Negative (Negative); Blood, Urine Moderate (Negative); Clarity TURBID (Clear); Glucose, Urine (Dipstick) Negative (Negative); Leukocyte Large (Negative); Nitrite Negative (Negative); Protein, Urine (Dipstick) 30 mg/dL (Neg-Trace); Urobilinogen 0.2 mg/dL (0.2-1.0); pH, Urine 6.5 (5.0-9.0)
[2018-11-30 17:27] LABS: Bacteria/HPF None Seen HPF (None Seen); Hyaline Casts/LPF 0-3 HYALINE CAST LPF (0-3 Hyaline); Pathc Cast-AUWi Flag 0.54 (0-2.49); RBC/HPF 21-50 HPF (0-3); Squamous Epithelial None Seen HPF (0-3)
[2018-11-30 17:28] LABS: Yeast-AUWi Flag 47.7 (0-25.0)
[2018-11-30 17:41] LABS: Yeast-All Forms None Seen HPF (None Seen)
[2018-11-30 17:42] LABS: Urine Culture Reflex Yes Yes
[2018-11-30] MEDS: Lovastatin 20 MG TAB PO SCH (20:24)
[2018-11-30] MEDS: Liothyronine Sodium 5 MCG TAB PO SCH (20:25)
[2018-11-30] MEDS: Aspirin 81 mg Enteric Coated Tablet PO SCH (20:25)
[2018-12-01] MEDS: Ibuprofen 600 MG TAB PO SCH ×3 (00:33→11:30)
[2018-12-01] MEDS: CEFAZOLIN 2 GM/50 ML-DEXTROSE 2 GM in Premix Bag 1 BAG IVPB SCH (00:33)
[2018-12-01] MEDS: Acetaminophen 325 MG TAB PO SCH ×6 (00:42→20:48)
[2018-12-01 05:10] LABS: Hemoglobin 12.6 g/dL (12.0-16.0); Mean Corpuscular HGB CONC 32.8 g/dL (32.0-36.0); Mean Corpuscular Hemoglobin 32.6 pg (27.0-31.0); Mean Corpuscular Volume 99.5 fL (78.0-98.0); Mean Platelet Volume 7.3 fL (7.4-10.4); Platelet Count 205 thou/uL (130-400); RBC Distribution Width 12.8 % (11.5-14.5); Red Blood Cell (RBC) Count 3.87 mill/uL (4.20-5.40); White Blood Cell (WBC) Count 12.3 thou/uL (4.8-10.8)
[2018-12-01 05:26] LABS: Anion Gap 12 mmol/L (10-20); BUN (Urea Nitrogen) 26 mg/dL (9.8-20.1); Calc. Creatinine Clearance 44 mL/min (70-130); Calcium 9.2 mg/dL (7.8-10.44); Carbon Dioxide 24 mmol/L (23-31); Chloride 102 mmol/L (98-107); Estimated GFR-MDRD 47; Glucose 100 mg/dL (83-110); Potassium 4.4 mmol/L (3.5-5.1); Sodium 134 mmol/L (136-145)
[2018-12-01] MEDS: Levothyroxine Sodium 100 MCG TAB PO SCH (06:24)
[2018-12-01] MEDS: Sodium Chloride 0.9% 1,000 ML IV SCH ×2 (06:24→11:21)
[2018-12-01] MEDS: Potassium Chloride 20 MEQ TAB PO SCH (08:56)
[2018-12-01] MEDS: Multivitamin W/ Minerals 1 TAB PO SCH (08:56)
[2018-12-01] MEDS: Amlodipine 5 MG TAB PO SCH (08:57)
[2018-12-01] MEDS: Senokot S 8.6-50 MG TAB PO SCH ×2 (08:57→20:43)
[2018-12-01] MEDS: Aspirin 81 mg Enteric Coated Tablet PO SCH ×2 (08:57→20:43)
[2018-12-01] MEDS: Ferrous Gluconate 324 MG TAB PO SCH ×2 (08:57→20:43)
[2018-12-01] MEDS: Liothyronine Sodium 5 MCG TAB PO SCH ×2 (08:58→20:43)
[2018-12-01] MEDS: Hydrochlorothiazide 25 MG TAB PO SCH (08:58)
[2018-12-01] MEDS ORDERED: Vit B12/Folic Acid/B6/Aa No.15 [Glycotrol Capsule] 1 CAP PO SCH (09:00)
[2018-12-01] MEDS: cefTRIAXone\\ROCEPHIN 1 GM in Sodium Chloride 0.9% 100 ML IVPB SCH (11:31)
--- NOTE | 2018-12-01 14:39 | PDOC.PN ---
- Subjective Encounter Start Date: 12/01/18 Encounter Start Time: 14:37 Subjective: feels better. no new complaints -: low BP discussed w Pt and RN - Objective MAR Reviewed: Yes Vital Signs & Weight: Vital Signs (12 hours) Temp Pulse Resp BP BP Pulse Ox 12/01/18 12:29 97.8 F 73 18 95/65 95 12/01/18 08:57 60 110/52 L 12/01/18 07:36 97.9 F 60 14 106/67 93 L 12/01/18 04:42 98.3 F 59 L 16 103/63 93 L Weight Admit Weight 150 lb Weight 150 lb I&O: 11/30/18 12/01/18 12/02/18 06:59 06:59 06:59 Intake Total 2240 Output Total 1250 300 Balance 990 -300 Result Diagrams: 12/01/18 04:29 12/01/18 04:29 Additional Labs: Microbiology 11/30/18 17:42 Urine clean catch Urine Culture - Preliminary NO GROWTH AT 24 HOURS Laboratory Tests 08/25/12 02/25/16 04/30/18 11:02 12:00 10:57 Hgb Creatinine 1.59 H 1.45 H 1.33 H 11/18/18 11/18/18 12/01/18 12:45 12:45 04:29 Hgb 14.1 12.6 Creatinine 1.14 H 12/01/18 04:29 Hgb Creatinine 1.13 H Phys Exam - Physical Examination Constitutional: NAD HEENT: PERRLA, moist MMs, sclera anicteric, oral pharynx no lesions Neck: no nodes, no JVD, supple, full ROM Respiratory: no wheezing, no rales, no rhonchi, clear to auscultation bilateral Cardiovascular: RRR, no significant murmur Gastrointestinal: soft, non-tender, no distention, positive bowel sounds Musculoskeletal: no edema, pulses present Neurological: non-focal, normal sensation, moves all 4 limbs Psychiatric: normal affect, A&O x 3 Skin: no rash Dx/Plan (1) UTI (urinary tract infection) Status: Acute (2) HTN (hypertension) Code(s): I10 - ESSENTIAL (PRIMARY) HYPERTENSION Status: Chronic (3) HLD (hyperlipidemia) Code(s): E78.5 - HYPERLIPIDEMIA, UNSPECIFIED Status: Chronic (4) Hypothyroid Code(s): E03.9 - HYPOTHYROIDISM, UNSPECIFIED Status: Chronic (5) H/O: CVA (cerebrovascular accident) Code(s): Z86.73 - PRSNL HX OF TIA (TIA), AND CEREB INFRC W/O RESID DEFICITS Status: Chronic (6) Status post total right knee replacement Code(s): Z96.651 - PRESENCE OF RIGHT ARTIFICIAL KNEE JOINT Status: Acute - Plan DVT proph w/SCDs add Rocephin and follow urine Cx -: Hold BP meds .pt also has clinidine patch on which will be continued for no -: Encouraged to discuss meds w PCP as they can be consolidated -: will check labs in am. H/H lower but stable. * . Review of Systems - Review of Systems Constitutional: negative: fever, chills, sweats, weakness, malaise, other ENT: negative: Ear Pain, Ear Discharge, Nose Pain, Nose Discharge, Nose Congestion, Mouth Pain, Mouth Swelling, Throat Pain, Throat Swelling, Other Respiratory: negative: Cough, Dry, Shortness of Breath, Hemoptysis, SOB with Excertion, Pleuritic Pain, Sputum, Wheezing Cardiovascular: negative: chest pain, palpitations, orthopnea, paroxysmal nocturnal dyspnea, edema, light headedness, other Gastrointestinal: negative: Nausea, Vomiting, Abdominal Pain, Diarrhea, Constipation, Melena, Hematochezia, Other Genitourinary: negative: Dysuria, Frequency, Incontinence, Hematuria, Retention , Other Musculoskeletal: negative: Neck Pain, Shoulder Pain, Arm Pain, Back Pain, Hand Pain, Leg Pain, Foot Pain, Other - Medications/Allergies Allergies/Adverse Reactions: Allergies Allergy/AdvReac Type Severity Reaction Status Date / Time allopurinol Allergy Severe Verified 11/18/18 12:44 atorvastatin calcium Allergy Severe Verified 11/18/18 12:44 [From Lipitor] celecoxib [From Celebrex] Allergy Severe Verified 11/18/18 12:44 codeine Allergy Severe Verified 11/18/18 12:44 Sulfa (Sulfonamide Allergy Severe Verified 11/18/18 12:44 Antibiotics) diphenhydramine HCl Allergy Intermediate Verified 11/18/18 12:44 [From Benadryl] phenytoin sodium Allergy Intermediate Verified 11/18/18 12:44 [From Dilantin] phenytoin sodium extended Allergy Intermediate Verified 11/18/18 12:44 [From Dilantin] tramadol HCl [From Ultram] Allergy Intermediate Verified 11/18/18 12:44 pentazine Allergy Severe Uncoded 11/18/18 12:44 myelogram dye Allergy Intermediate Uncoded 11/18/18 12:44 Medications: Current Medications Acetaminophen (Tylenol) 650 mg PO Q4HR [facility] Last Admin: 12/01/18 11:20 Dose: Not Given Acetaminophen (Tylenol) 1,000 mg PO Q6H PRN PRN Reason: Mild Pain (1-3) Hydrocodone Bitart/Acetaminophen ([place] 10/325) 1 tab PO Q4H PRN PRN Reason: Pain (1-3) Hydrocodone Bitart/Acetaminophen ([place] 10/325) 2 tab PO Q4H PRN PRN Reason: PAIN (4-6) Last Admin: 11/30/18 15:21 Dose: 2 tab [facility]od[facility] [place] Last Admin: 12/01/18 08:57 Dose: Not Given Aspirin (Ecotrin) 81 mg PO BID [facility] Last Admin: 12/01/18 08:57 Dose: 81 mg Benzonatate (Tessalon) 100 mg PO Q6H PRN PRN Reason: Cough Bisacodyl (Dulcolax) 10 mg PO DAILYPRN PRN PRN Reason: Constipation Candesartan Cilexetil (Atacand) [facility] [place] Last Admin: 12/01/18 08:58 Dose: Not Given Cholecalciferol (Vitamin D3) 2,000 units PO [facility] Last Admin: 12/01/18 08:57 Dose: 2,000 units Clonidine (Yctwuydp-Hus-2 Patch) 0.1 mg TD Q7D [facility] Last Admin: 11/30/18 14:27 Dose: Not Given Clonidine (Catapres) 0.1 mg PO Q4H PRN PRN Reason: SBP > _160___ Diphenhydramine HCl (Benadryl) 25 mg PO Q6H PRN PRN Reason: Itching Fentanyl (Sublimaze) 50 mcg IV Q1H PRN PRN Reason: BREAKTHROUGH PAIN Ferrous Gluconate (Fergon) 324 mg PO BID [facility] Last Admin: 12/01/18 08:57 Dose: 324 mg Guaifenesin (Robitussin Sf) 200 mg PO Q4H PRN PRN Reason: Cough Hydralazine HCl (Apresoline) 10 mg SLOW IVP Q4H PRN PRN Reason: SBP > 180 and HR < 70 Hydrochlorothiazide (Hydrochlorothiazide) 12.5 mg PO DAILY [facility] Last Admin: 12/01/18 08:58 Dose: Not Given Sodium Chloride (Normal Saline 0.9%) 1,000 mls @ 100 mls/hr IV .Q10H [facility] Last Admin: 12/01/18 11:21 Dose: Not Given Ropivacaine 250 ml/ Device 250 mls @ 0 mls/hr NERVE BLCK INF [facility] Last Admin: 12/01/18 11:34 Dose: 250 mls Ceftriaxone Sodium 1 gm/ (Sodium Chloride) 100 mls @ 200 mls/hr IVPB 1100 [facility] Last Admin: 12/01/18 11:31 Dose: 100 mls Ibuprofen (Motrin) 600 mg PO Q6HR [facility] Last Admin: 12/01/18 11:30 Dose: 600 mg Iron/Minerals/Multivitamins (Theragran M) 1 tab PO DAILY [facility] Last Admin: 12/01/18 08:56 Dose: 1 tab Levothyroxine Sodium (Synthroid) 100 mcg PO 0600 [facility] Last Admin: 12/01/18 06:24 Dose: 100 mcg Liothyronine Sodium (Cytomel) 5 mcg PO BID [facility] Last Admin: 12/01/18 08:58 Dose: 5 mcg Lovastatin (Mevacor) 40 mg PO HS [facility] Last Admin: 11/30/18 20:24 Dose: 40 mg Metoprolol Succinate (Toprol Xl) 100 mg PO BID [facility] Last Admin: 12/01/18 08:58 Dose: Not Given Mirabegron (Myrbetriq Er) 25 mg PO QAM [facility] Last Admin: 12/01/18 09:55 Dose: 25 mg Nitroglycerin (Nitrostat) 0.4 mg SL Q5MIN PRN PRN Reason: Chest Pain Ondansetron HCl (Zofran) 4 mg IVP Q6H PRN PRN Reason: Nausea/Vomiting Potassium Chloride (K-Dur) 20 meq PO DAILY [facility] Last Admin: 12/01/18 08:56 Dose: 20 meq Promethazine HCl (Phenergan) 12.5 mg IM Q4H PRN PRN Reason: Nausea Senna/Docusate Sodium (Senokot S) 2 tab PO BID [facility] Last Admin: 12/01/18 08:57 Dose: 2 tab Sodium Chloride (Flush - Normal Saline) 10 ml IVF PRN PRN PRN Reason: Saline Flush Zolpidem Tartrate (Ambien) 5 mg PO HSPRN PRN PRN Reason: Insomnia
[2018-12-01] MEDS: HYDROcodone/Acetaminophen 10/325 mg Tablet PO PRN (15:58)
[2018-12-01] MEDS: Ibuprofen 200 MG TAB PO SCH ×2 (18:10→23:50)
[2018-12-01] MEDS: Lovastatin 20 MG TAB PO SCH (20:48)
[2018-12-02] MEDS: Sodium Chloride 0.9% 1,000 ML IV SCH ×3 (02:03→20:46)
[2018-12-02] MEDS: Acetaminophen 325 MG TAB PO SCH ×6 (02:03→20:24)
[2018-12-02] MEDS: Ibuprofen 200 MG TAB PO SCH (05:10)
[2018-12-02] MEDS: Levothyroxine Sodium 100 MCG TAB PO SCH (05:10)
[2018-12-02 05:23] LABS: Hemoglobin 11.5 g/dL (12.0-16.0); Mean Corpuscular Hemoglobin 32.9 pg (27.0-31.0); Mean Corpuscular Volume 99.7 fL (78.0-98.0); Mean Platelet Volume 7.7 fL (7.4-10.4); Platelet Count 188 thou/uL (130-400); RBC Distribution Width 12.8 % (11.5-14.5); Red Blood Cell (RBC) Count 3.48 mill/uL (4.20-5.40); White Blood Cell (WBC) Count 12.2 thou/uL (4.8-10.8)
[2018-12-02] MEDS: Aspirin 81 mg Enteric Coated Tablet PO SCH ×2 (08:18→20:24)
[2018-12-02] MEDS: Hydrochlorothiazide 25 MG TAB PO SCH ×2 (08:18→08:32)
[2018-12-02] MEDS: Senokot S 8.6-50 MG TAB PO SCH ×2 (08:19→22:37)
[2018-12-02] MEDS: Amlodipine 5 MG TAB PO SCH (08:19)
[2018-12-02] MEDS: Potassium Chloride 20 MEQ TAB PO SCH (08:20)
[2018-12-02] MEDS: Multivitamin W/ Minerals 1 TAB PO SCH (08:20)
[2018-12-02] MEDS: Ferrous Gluconate 324 MG TAB PO SCH ×2 (08:20→20:24)
[2018-12-02] MEDS: Liothyronine Sodium 5 MCG TAB PO SCH ×2 (10:05→20:24)
[2018-12-02] MEDS: HYDROcodone/Acetaminophen 10/325 mg Tablet PO PRN ×2 (10:12→16:02)
[2018-12-02] MEDS: cefTRIAXone\\ROCEPHIN 1 GM in Sodium Chloride 0.9% 100 ML IVPB SCH (11:55)
--- NOTE | 2018-12-02 15:09 | PDOC.EVN ---
Event Note - Event Note Event Note: chart reviewed. VSS. labs noted urine Cx pending. cont rocephin. will follow
[2018-12-02] MEDS: Lovastatin 20 MG TAB PO SCH (20:25)
[2018-12-02] MEDS: Cefdinir 300 MG CAP PO SCH (20:25)
[2018-12-03] MEDS: Acetaminophen 325 MG TAB PO SCH ×4 (01:04→12:39)
[2018-12-03] MEDS: Levothyroxine Sodium 100 MCG TAB PO SCH (06:09)
[2018-12-03] MEDS: Sodium Chloride 0.9% 1,000 ML IV SCH ×2 (06:10→10:25)
[2018-12-03] MEDS: Aspirin 81 mg Enteric Coated Tablet PO SCH (10:22)
[2018-12-03] MEDS: Cefdinir 300 MG CAP PO SCH (10:22)
[2018-12-03] MEDS: Amlodipine 5 MG TAB PO SCH (10:22)
[2018-12-03] MEDS: Ferrous Gluconate 324 MG TAB PO SCH (10:23)
[2018-12-03] MEDS: Potassium Chloride 20 MEQ TAB PO SCH (10:23)
[2018-12-03] MEDS: Liothyronine Sodium 5 MCG TAB PO SCH (10:24)
[2018-12-03] MEDS: Multivitamin W/ Minerals 1 TAB PO SCH (10:24)
[2018-12-03] MEDS: cefTRIAXone\\ROCEPHIN 1 GM in Sodium Chloride 0.9% 100 ML IVPB SCH (10:25)
[2018-12-03] MEDS: Senokot S 8.6-50 MG TAB PO SCH (10:25)
[2018-12-03 11:53] VITALS: BP 132/75; TEMP 98.3
[2018-12-03] MEDS: HYDROcodone/Acetaminophen 10/325 mg Tablet PO PRN (12:55)
--- NOTE | 2018-12-03 13:00 | PDOC.EVN ---
Event Note - Event Note Event Note: Pt being discharged to rehab. add Omnicef for 3 more days for UTIO. final Cx still pending Hold ARB /HCTZ for now given SONIA/CKD OK to DC from IM stand point.HD stable.chart reviewed.
--- NOTE | 2018-12-06 11:38 | DIS ---
DATE OF ADMISSION: 11/30/2018 DATE OF DISCHARGE: 12/03/2018 PREOPERATIVE DIAGNOSIS: Right knee degenerative joint disease/osteoarthritis of the right knee. POSTOPERATIVE DIAGNOSIS: Right knee degenerative joint disease/osteoarthritis of the right knee. PROCEDURE PERFORMED: The patient underwent a right total knee replacement. Hospital stay was unremarkable. The patient was admitted to [address], where she worked with staff, Physical Therapy, Occupational Therapy, and progressed fairly well. By postop day three, it was decided that discharge should be to a rehab facility for further rehabilitation. The patient and family have it planned. DISCHARGE CONDITION: Good/stable. DISPOSITION: Rehab. FOLLOWUP: Follow up would be in 2 to 4 weeks or sooner if there are problems or concerns. DISCHARGE MEDICATIONS: Given with the usage instructions. Job ID: [id number]
== END 2018-12-03 13:25 | DRG 470 ==
LOC: SDC 06:14 → SJJU 12:44
PROVIDERS: ADMIT Orthopaedic Surgery; ATTEND Orthopaedic Surgery
PROC: 0SRC0J9 Replacement of Right Knee Joint with Synthetic Substitute, Cemented, Open Approach (ICD-10-PCS; principal; 2018-11-30)
DX: M17.11 Unilateral primary osteoarthritis, right knee (principal); N39.0 Urinary tract infection, site not specified; N17.9 Acute kidney failure, unspecified; E78.5 Hyperlipidemia, unspecified; E03.9 Hypothyroidism, unspecified; G35 Multiple sclerosis; E55.9 Vitamin D deficiency, unspecified; N18.9 Chronic kidney disease, unspecified; I12.9 Hypertensive chronic kidney disease with stage 1 through stage 4 chronic kidney disease, or unspecified chronic kidney disease; Z86.73 Personal history of transient ischemic attack (TIA), and cerebral infarction without residual deficits; Z98.1 Arthrodesis status; Z96.641 Presence of right artificial hip joint; Z79.899 Other long term (current) drug therapy; Z96.612 Presence of left artificial shoulder joint; Z88.2 Allergy status to sulfonamides; Z88.8 Allergy status to other drugs, medicaments and biological substances; Z88.5 Allergy status to narcotic agent; Z88.6 Allergy status to analgesic agent; Z98.890 Other specified postprocedural states
CPT/HCPCS: 36415; 80048; 81001; 85027; 87086; C1713; C1776; J0696; J2001; J2250; J2405; J2704; J2795; J3010; J3370; J7050

== ENCOUNTER 2019-03-17 11:17 | Observation (INO) | payer MEDICARE, OTHER ==
[2019-03-17] MEDS ORDERED: Pantoprazole 40 MG VIAL ONE (13:43)
[2019-03-17 13:49] LABS: #Basophils 0.1 thou/uL (0.0-0.2); #Eosinphils 0.3 thou/uL (0.0-0.7); #Lymphocytes 1.7 thou/uL (1.20-3.40); #Monocytes 0.7 thou/uL (0.11-0.59); #Neutrophils 7.9 thou/uL (1.40-6.50); %Eosinophils 2.8 % (0.0-10.0); %Lymphocytes 16.1 % (21.0-51.0); %Monocytes 6.4 % (0.0-10.0); %Neutrophils 73.8 % (42.0-75.0); Hemoglobin 12.6 g/dL (12.0-16.0); Mean Corpuscular HGB CONC 32.2 g/dL (32.0-36.0); Mean Corpuscular Hemoglobin 30.9 pg (27.0-31.0); Mean Platelet Volume 8.4 fL (7.4-10.4); Platelet Count 162 thou/uL (130-400); RBC Distribution Width 13.1 % (11.5-14.5); Red Blood Cell (RBC) Count 4.06 mill/uL (4.20-5.40); White Blood Cell (WBC) Count 10.7 thou/uL (4.8-10.8)
[2019-03-17 15:04] LABS: Albumin 3.3 g/dL (3.4-4.8)
[2019-03-17 15:05] LABS: Chloride 104 mmol/L (98-107); Potassium 3.2 mmol/L (3.5-5.1); Sodium 135 mmol/L (136-145)
[2019-03-17 15:06] LABS: Glucose 97 mg/dL (83-110)
[2019-03-17 15:07] LABS: Anion Gap 13 mmol/L (10-20); Carbon Dioxide 21 mmol/L (23-31); Globulin 2.5 g/dL (2.4-3.5); Protein, Total 5.8 g/dL (6.0-8.3)
[2019-03-17 15:08] LABS: Bilirubin, Total 0.4 mg/dL (0.2-1.2)
[2019-03-17 15:09] LABS: Alkaline Phosphatase 98 U/L (40-150)
[2019-03-17 15:10] LABS: BUN (Urea Nitrogen) 41 mg/dL (9.8-20.1); Calc. Creatinine Clearance 0 mL/min (70-130); Estimated GFR-MDRD 40
[2019-03-17 15:11] LABS: AST (SGOT) 16 U/L (5-34)
[2019-03-17 15:12] LABS: ALT (SGPT) 11 U/L (8-55)
[2019-03-17] MEDS ORDERED: Acetaminophen 325 MG TAB PO PRN (17:17)
[2019-03-17] MEDS ORDERED: Bisacodyl 5 MG TAB PO PRN (17:17)
[2019-03-17 17:53] VITALS: BMI 24.7
[2019-03-17] MEDS ORDERED: Potassium Chloride 20 MEQ TAB PO SCH (18:45)
[2019-03-17] MEDS ORDERED: GoLYTELY 4,000 ml Bottle PO SCH (19:00)
--- NOTE | 2019-03-17 19:04 | HP ---
PRIMARY CARE PROVIDER: Dr. Arnie Jean. CHIEF COMPLAINT: Rectal bleeding. HISTORY OF PRESENT ILLNESS: Ms. Martinez is a pleasant 78-year-old lady, who was seen at [facility] on March 17, 2019. She reports having bidirectional scopes at [place] and [place] prior to November 2018 for rectal bleeding. She does not know the outcome of the scope. She reports that over the last 3 days, she was constipated. She also had some abdominal discomfort yesterday. She reports that it was a cramping sensation. Today morning, she had 4 episodes of bright red blood per rectum. She called EMS and was brought to the emergency room. She reports feeling generalized weakness and fatigue, but no headache or lightheadedness. She denies any chest pain or palpitations. She reports nausea when she tries to eat, as well as cramping sensation in her abdomen, but no vomiting. She denies any urinary symptoms. REVIEW OF SYSTEMS: All other systems reviewed and found to be negative. PAST MEDICAL HISTORY: Hypothyroidism, dyslipidemia, hypertension, multiple sclerosis, and Christiano's thyroiditis. PAST SURGICAL HISTORY: Right hip surgery, left shoulder surgery, back surgery, hysterectomy. SOCIAL HISTORY: The patient denies tobacco use, alcohol use, or recreational drug use. FAMILY HISTORY: No family history of premature coronary artery disease. CODE STATUS: I discussed her code status. She is DNAR. ALLERGIES: 1. ALLOPURINOL. 2. ATORVASTATIN. 3. BENADRYL. 4. CELECOXIB. 5. CODEINE. 6. PENTAZOCINE. 7. PHENYTOIN. 8. BACTRIM. 9. TRAMADOL. CURRENT MEDICATIONS: 1. Potassium chloride 20 mEq daily. 2. Metoprolol succinate 100 mg daily. 3. Candesartan/hydrochlorothiazide 32/12.5 mg daily. 4. Amlodipine 5 mg daily. 5. Myrbetriq 25 mg daily. 6. Synthroid 88 mcg daily. 7. Liothyronine 5 mcg two times a day. 8. Lovastatin 40 mg at bedtime. 9. Clonidine 0.1 mg per 24 hour patch every week and clonidine orally as needed. PHYSICAL EXAMINATION: GENERAL: On examination, Ms. Martinez is awake and alert, not in acute distress. VITAL SIGNS: Blood pressure is 136/68, pulse 62, respiratory rate 17, and oxygen saturation 97% on room air. She is afebrile. EYES: No scleral icterus, no conjunctival pallor. ENT: Moist mucosal membranes, no oropharyngeal erythema or exudates. NECK: Supple, nontender, trachea is midline. RESPIRATORY: Accessory muscles of breathing are not active. Chest wall movements are symmetric bilaterally. LUNGS: Clear to auscultation without wheeze, rhonchi, or crepitations. CARDIOVASCULAR: S1 and S2 are heard, regular. Peripheral pulses palpable. No carotid bruit. No pericardial rub. ABDOMEN: Soft, nontender, bowel sounds heard, no hepatomegaly, no splenomegaly. NEUROLOGIC: Cranial nerves 2 through 12 intact, deep tendon reflexes 2+. MUSCULOSKELETAL: Power is 5/5 in all 4 extremities. SKIN: She has trace right foot edema. No rashes or subcutaneous nodules. LYMPHATIC: No cervical lymphadenopathy. PSYCHIATRIC: Normal mood, normal affect, the patient is oriented to person, place, and time. LABORATORY DATA: Ms. Martinez's labs and investigations were reviewed. She has normal white count, normal hemoglobin 12.6, hemoglobin was 11.5 on December 02, 2018, normal platelet count. Decreased sodium of 135, decreased potassium of 3.2, elevated blood urea nitrogen of 41, elevated creatinine 1.29, creatinine was 0.86 on December 05, 2018, and an unremarkable liver profile. Lactic acid level is normal. ASSESSMENT AND PLAN: Ms. Martinez is a pleasant 78-year-old lady, who was seen at [facility] on March 17, 2019. Her problem list includes: 1. Lower gastrointestinal bleed: Ms. Martinez is presenting with lower gastrointestinal bleed, most likely diverticular. She will be admitted to the hospital on observation status. We will recheck her H and H. Gastroenterology Service will be consulted for opinion and help with management. At this point in time, there is no evidence of infection, therefore, I am not starting antibiotics. 2. Acute kidney injury: Most likely prerenal, given her history of not eating much over the last few days. We will start IV fluids and recheck her creatinine. 3. Hypothyroidism: We will continue home medications once clarified. 4. Hypokalemia: Replace potassium and recheck potassium level. 5. Hyponatremia: Mild, likely asymptomatic. 6. Hypertension: We will resume home medications, monitor vital signs and titrate antihypertensives as needed. 7. Dyslipidemia: Continue statin, stable. Many thanks for allowing me to participate in your patient's care. Please feel free to contact me with any questions or concerns. LEVEL OF RISK: Moderate. LEVEL OF COMPLEXITY: Moderate. Job ID: [id number]
[2019-03-17] MEDS: Sodium Chloride 0.9% 1,000 ML IV SCH (19:37)
[2019-03-17 19:40] LABS: Hemoglobin 11.6 g/dL (12.0-16.0)
[2019-03-17] MEDS ORDERED: cloNIDine 0.1 MG TAB PO PRN (22:33)
[2019-03-17] MEDS ORDERED: Liothyronine Sodium 5 MCG TAB PO SCH (22:45)
[2019-03-17] MEDS ORDERED: Lovastatin 20 MG TAB PO SCH (23:00)
[2019-03-18 00:34] LABS: Hemoglobin 11.6 g/dL (12.0-16.0)
--- NOTE | 2019-03-18 01:53 | CON ---
DATE OF CONSULTATION: 03/17/2019 REASON FOR CONSULTATION: Hematochezia. CONSULTING PROVIDER: Phoebe Larson MD. HISTORY OF PRESENT ILLNESS: The patient is a 78-year-old female with past medical history of hypertension, hyperlipidemia, hypothyroidism, chronic lower back pain, multiple sclerosis, vitamin D deficiency, and remote cerebrovascular accident with no residual deficit, presenting with complaints of hematochezia. She states that she was in her usual state of health until yesterday when she began to have increased cramping abdominal pain that was followed by a harder to pass bowel movement. Within a few hours after having this bowel movement, she experienced hematochezia characterized as bright red blood per rectum. That was of a hczh-pe-sfbtkxce amount with blood present both in the toilet and in the toilet paper. With the mild amount of bleeding, she opted to go sleep overnight and see how she felt in the morning. Early that morning, she again had a cramping abdominal discomfort, which prompted her to have another bowel movement with this bowel movement also mixed was blood and blood filling her panty liner. She did not experience any additional symptoms with this bleeding. With the patient denying nausea, vomiting, fevers, chills, abdominal pain, diarrhea, odynophagia, dysphagia, or weight loss this entire time. However, she had been taking hydrocodone in the past due to her recent surgery and had also been taking ibuprofen 600 mg 3 times a day for general aches and pains with the last use of ibuprofen approximately 3 weeks ago. Also of note, the patient does have a history of constipation, having approximately 1 solid bowel movement every 3 days characterized as a hard to pass stool (Foster 1) that would require increased straining in order to facilitate defecation. This was usually associated with increased abdominal cramping immediately prior to having a harder to pass bowel movement like she did yesterday prior to the onset of bleeding. Of note, the patient was admitted to [facility] in October of 2018, with similar complaints of hematochezia for which she underwent both an upper and lower endoscopy. However, the results of these diagnostic studies are known and the patient could not recall ever being given the results of these studies as well. REVIEW OF SYSTEMS: A 10-category review of systems was obtained with all responses negative except for the pertinent positives as listed in the HPI. PAST MEDICAL HISTORY: As per HPI. PAST SURGICAL HISTORY: Right hip surgery, left shoulder surgery, back surgery, hysterectomy. FAMILY HISTORY: Denies any GI malignancies. SOCIAL HISTORY: Denies any tobacco, alcohol, or illicit drug use. OUTPATIENT MEDICATIONS: 1. Klor-Con 20 mEq daily. 2. Metoprolol 100 mg daily. Candesartan/hydrochlorothiazide 32 mg/12.5 mg daily. 3. Amlodipine 5 mg daily. 4. Myrbetriq 25 mg daily. 5. Synthroid 88 mcg daily. 6. Liothyronine 5 mcg b.i.d. 7. Lovastatin 40 mg daily. 8. Clonidine patch 0.1 mg/24 hour once weekly. ALLERGIES: ALLOPURINOL, ATORVASTATIN, BENADRYL, CELECOXIB, CODEINE, PANTACIN, PHENYTOIN, SULFAMETHOXAZOLE/TRIMETHOPRIM AND TRAMADOL. PHYSICAL EXAMINATION: VITAL SIGNS: Temperature 97.5, pulse 62, blood pressure 165/74, respiratory rate 18, saturating 99% on room air. GENERAL: The patient was lying in bed, in no acute distress. She was alert and oriented x4. HEENT: Normocephalic, atraumatic. No scleral icterus or JVD noted. CARDIOVASCULAR: Regular rate and rhythm with a 3/6 systolic murmur best heard at the right upper sternal border. No other discernible rubs or gallops. RESPIRATORY: Clear to auscultation bilaterally with no discernible wheezes or rales. ABDOMEN: Normoactive bowel sounds. Soft, nontender, nondistended. EXTREMITIES: No cyanosis, clubbing, or edema. LABORATORY DATA: CBC with a white blood cell count of 10.7, hemoglobin 12.6, hematocrit 39, platelets 162. Chemistry with a sodium of 135, potassium 3.2, chloride 104, CO2 of 21, BUN 41, creatinine 1.29, glucose 97. AST 16, ALT 11, alkaline phosphatase 98, total bilirubin 0.4, albumin 3.3. IMAGING DATA: No current GI imaging is available for review. ASSESSMENT AND PLAN: The patient is a 78-year-old female with past medical history of hypertension, hyperlipidemia, hypothyroidism, chronic lower back pain, multiple sclerosis, vitamin D deficiency, and remote cerebral vascular accident with no residual deficits presenting with hematochezia. Hematochezia. The patient was presenting with fairly acute onset of hematochezia characterized as bright red blood per rectum, has occurred on 2 different such occasions with bright red blood seen primarily within her panty liners and then her underwear as well as both in the toilet and on the toilet paper. This is characterized as painless hematochezia with no other additional symptoms. She did undergo both an EGD and colonoscopy earlier this year as part of workup related to a prior episode of hematochezia, but the report and her recall of the findings for these procedures is unknown. At this time, the differential could include hemorrhoidal bleeding (most likely given the recent surgery for hemorrhoidectomy), arteriovenous malformation, Dieulafoy lesion, diverticular bleeding (less likely), inflammatory bowel disease, ischemic colitis and/or GI neoplasm (much less likely given prior colonoscopy earlier this year). RECOMMENDATIONS: 1. We would continue to trend H and H and transfuse as necessary to maintain an H and H of 7/2. 2. Continue to monitor clinically for signs of active GI bleeding. 3. We will attempt to obtain records from [facility] for evaluation of these prior and endoscopic studies that might help localized the source of bleeding. 4. We will place the patient on a clear liquid diet tonight with plans to make her n.p.o. at midnight in preparation for colonoscopy tomorrow. 5. We will also give her GoLYTELY prep tonight in anticipation for procedure as well. 6. We will continue to follow. Please call with any question. Job ID: [id number]
[2019-03-18] MEDS ORDERED: Levothyroxine Sodium 88 MCG TAB PO SCH (06:00)
[2019-03-18 06:09] LABS: #Basophils 0.1 thou/uL (0.0-0.2); #Eosinphils 0.5 thou/uL (0.0-0.7); #Lymphocytes 1.8 thou/uL (1.20-3.40); #Monocytes 0.9 thou/uL (0.11-0.59); #Neutrophils 7.7 thou/uL (1.40-6.50); %Basophils 0.6 % (0.0-1.0); %Eosinophils 4.8 % (0.0-10.0); %Lymphocytes 16.5 % (21.0-51.0); %Neutrophils 70.2 % (42.0-75.0); Mean Corpuscular Hemoglobin 31.4 pg (27.0-31.0); Mean Corpuscular Volume 95.1 fL (78.0-98.0); Mean Platelet Volume 7.5 fL (7.4-10.4); Platelet Count 318 thou/uL (130-400); Red Blood Cell (RBC) Count 3.83 mill/uL (4.20-5.40); White Blood Cell (WBC) Count 10.9 thou/uL (4.8-10.8)
[2019-03-18 06:14] LABS: Anion Gap 14 mmol/L (10-20); BUN (Urea Nitrogen) 30 mg/dL (9.8-20.1); Calc. Creatinine Clearance 41 mL/min (70-130); Calcium 9.3 mg/dL (7.8-10.44); Carbon Dioxide 22 mmol/L (23-31); Chloride 104 mmol/L (98-107); Estimated GFR-MDRD 46; Glucose 88 mg/dL (83-110); Potassium 3.3 mmol/L (3.5-5.1); Sodium 137 mmol/L (136-145)
[2019-03-18 08:31] VITALS: TEMP 97.3
[2019-03-18] MEDS ORDERED: Liothyronine Sodium 5 MCG TAB PO SCH (09:00)
[2019-03-18] MEDS ORDERED: Aspirin 81 mg Enteric Coated Tablet PO SCH (09:00)
[2019-03-18] MEDS ORDERED: Hydrochlorothiazide 25 MG TAB PO SCH (09:00)
[2019-03-18] MEDS ORDERED: Amlodipine 5 MG TAB PO SCH (09:00)
[2019-03-18] MEDS ORDERED: Promethazine HCl 25 MG/ML VIAL SLOW IVP PRN (12:41)
[2019-03-18] MEDS ORDERED: Promethazine HCl 25 MG/ML VIAL IM PRN ×2 (12:41→13:17)
[2019-03-18] MEDS ORDERED: Ondansetron HCl/PF 4 MG/2 ML Vial IVP PRN ×2 (12:41→13:17)
[2019-03-18] MEDS ORDERED: PHENYLEPHRINE-NS 100 MCG/ML 10 ML SYRINGE ONE (13:09)
[2019-03-18] MEDS ORDERED: PROPOFOL 200 MG/20 ML VIAL ONE (13:09)
[2019-03-18] MEDS ORDERED: Lidocaine 1% PF 5 ML VIAL ONE (13:09)
--- NOTE | 2019-03-18 13:41 | OP ---
DATE OF PROCEDURE: 03/18/2019 PROCEDURE PERFORMED: Colonoscopy (diagnostic). INDICATION FOR PROCEDURE: Hematochezia. DESCRIPTION OF PROCEDURE: After the risks and benefits of the procedure were explained to the patient including risks of bleeding, infection, perforation, reactions to anesthesia, aspiration, and/or pain, informed consent was obtained. The patient was then taken to the endoscopy suite, where deep sedation was administered via propofol and anesthesia support. Once adequate sedation was achieved, a digital rectal examination was performed followed by introduction of the standard colonoscope, which was then advanced to the terminal ileum with some difficulty requiring manual abdominal pressure to facilitate passage of the scope secondary to colon redundancy and tortuosity. The quality of the prep was excellent. The patient tolerated the procedure well with no immediate perioperative complications. Upon completion of the procedure, the patient was transferred to PACU in satisfactory condition. FINDINGS: Digital rectal exam. Small external hemorrhoids were seen on external examination, but did not exhibit any evidence of active/recent bleeding. Colon findings. Normal-appearing mucosa was seen within the terminal ileum as well as at the ileocecal valve and appendiceal orifice. Normal-appearing mucosa was then seen in the cecum, ascending, transverse, and descending colons. Within the sigmoid colon, multiple small and large mouth diverticula were seen consistent with uahojvpb-gm-xchxos diverticulosis. Within this region, there was also increased patches of mucosal erythema as well as mild granularity to the colonic mucosa concerning for recent inflammation that may have contributed to her hematochezia. However, there were no overt ulcerations nor was there any evidence of active/recent bleeding seen during this portion of the exam. Careful inspection was made of all seen diverticula with no evidence of a diverticular bleed. Normal-appearing mucosa was then seen in the rectum and on rectal retroflexion. IMPRESSION: 1. 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 2. Small external hemorrhoids. RECOMMENDATIONS: 1. Would continue to trend H and H and transfuse as necessary to maintain an H and H of 7/21 while inpatient. 2. Continue to monitor clinically for signs of active GI bleeding. 3. Given the resolution of her hematochezia and stable H and H during this admission, could consider discharge to home with followup in the GI Clinic as an outpatient. 4. Would recommend a higher fiber diet given the presence of lzlvists-xf-nfagmi diverticulosis and possible segmental colitis associated with diverticulosis. We will sign off at this time. Please call with any questions. Job ID: [id number]
[2019-03-18] MEDS: Sodium Chloride 0.9% 1,000 ML IV SCH (13:49)
[2019-03-18 13:59] VITALS: BP 142/67
[2019-03-18] MEDS ORDERED: Lovastatin 20 MG TAB PO SCH (21:00)
== END 2019-03-18 16:14 | disposition home or self-care (01) ==
LOC: ERS 11:17 → 2SW 15:04
PROVIDERS: ADMIT Internal Medicine; ATTEND Internal Medicine
PROC: 0DJD8ZZ Inspection of Lower Intestinal Tract, Via Natural or Artificial Opening Endoscopic (ICD-10-PCS; principal; 2019-03-17)
DX: K57.31 Diverticulosis of large intestine without perforation or abscess with bleeding (principal); K64.4 Residual hemorrhoidal skin tags; R53.1 Weakness; I10 Essential (primary) hypertension; E06.3 Autoimmune thyroiditis; E78.5 Hyperlipidemia, unspecified; E87.6 Hypokalemia; E87.1 Hypo-osmolality and hyponatremia; G89.29 Other chronic pain; M54.9 Dorsalgia, unspecified; Z79.899 Other long term (current) drug therapy; Z88.1 Allergy status to other antibiotic agents; Z88.6 Allergy status to analgesic agent; Z88.8 Allergy status to other drugs, medicaments and biological substances; Z66 Do not resuscitate
CPT/HCPCS: 45378; 80048; 80053; 82274; 83605; 85014 ×2; 85018 ×2; 85025 ×2; 86850; 86900; 86901; 96361 ×3; 96374; 99285; G0378 ×2; 36415; C9113; J2001; J2704

== ENCOUNTER 2019-10-04 14:36 | Outpatient (CLI) | payer MEDICARE, OTHER ==
--- NOTE | 2019-10-04 16:30 | MRI ---
Exam: MRI lumbar spine with and without contrast Comparison 03/06/2014, 03/04/2018 TECHNIQUE: MRI lumbar spine is performed with and without intravenous gadolinium administration. Mult i sequential, multiplanar imaging is performed FINDINGS: There are bilateral transpedicular screws at L4-L5 with associated metallic suspected artifact. L4-L5 disc prosthesis. Overall there is appropriate T1 marrow signal intensity lumbar vertebra. No fracture. No significant STIR hyperintensity to suggest vertebral body edema or ligamentous injury. Appropriate signal intensity of the paraspinal muscles. Multiple T2 hyperintensities in the left and right renal cortex compatible with cortical cysts. Postcontrast images do not demonstrate any abnormal enhancement of the vertebral bodies. There is no abnormal enhancement within the thecal sac including the cauda equina and conus medullaris. Conus medullaris terminates at the T12-L1 disc space T12-L1: No significant central canal stenosis or significant neural from narrowing L1-L2: Minimal disc bulge. No significant central canal stenosis or significant neural foraminal narr owing L2-L3: Desiccation with mild loss of disc space height. Broad-based disc bulge, ligamentum flavum thi ckening and facet hypertrophy result in moderate central canal stenosis. Mild to moderate right and moderate left neural foraminal narrowing L3-L4: Desiccation with mild loss of disc space height. Posterior laminectomy defect. Generalized dis c bulge, without significant central canal stenosis. Moderate to severe bilateral neural foraminal narrowing L4-L5: Disc prosthesis. Laminectomy defect. Mild mass effect upon the posterior thecal sac secondary to a T2 hyperintense lesion measuring 0.6 cm anterior-posterior by 2.1 cm mediolateral by 2.1 cm cranial caudal. There is associated peripheral enhancement. 4.9 mm of anterolisthesis of L4 upon L5. Limited evaluation the right neural foramen due to metallic susceptibility artifact. Mild left neural foraminal narrowing. L5-S1: Adequate disc hydration. No significant central canal stenosis. Mild bilateral foraminal narro wing secondary to moderate to severe bilateral facet hypertrophy. There are postoperative changes in the midline subcutaneous fat. There is evidence of a T2 hyperinten se collection with peripheral enhancement. This collection measures 3.8 cm renal cortical x 1 cm anterior posterior x 1.2 cm mediolateral. IMPRESSION: 1. Grade 1 anterolisthesis of L4 upon L5. Lumbar fusion changes at L4-L5. 2. Laminectomy defect at L3-L4 and L4-L5. L4-L5 disc prosthesis 3. Peripherally enhancing fluid collection along the midline subcutaneous fat as well as at the level of the laminectomy defect. Mild mass effect upon the thecal sac at L4-L5. These a forementioned fluid collections does demonstrate peripheral enhancement. Differential considerations include infect ed fluid collection versus postoperative fluid. Clinical correlation is essential. Results of study conveyed to Dr. Balderrama via [employer] connect 10/04/2019 at 4:28 PM Code CR
== END 2019-10-04 14:37 | disposition home or self-care (01) ==
LOC: TBSIIMAG 14:36
PROVIDERS: ATTEND Neurological Surgery
DX: M51.16 Intervertebral disc disorders with radiculopathy, lumbar region (principal); M43.16 Spondylolisthesis, lumbar region; Z98.1 Arthrodesis status; Z98.890 Other specified postprocedural states
CPT/HCPCS: 72158; 82565

== ENCOUNTER 2020-02-01 20:28 | Inpatient (IN) | payer MEDICARE, OTHER ==
[2020-02-01] MEDS ORDERED: Morphine 4 MG/ML VIAL ONE (20:51)
[2020-02-01] MEDS ORDERED: Ondansetron PF 4 MG/2 ML Vial ONE (20:51)
--- NOTE | 2020-02-01 20:58 | RAD ---
Chest one view HISTORY: Preop. COMPARISON: 03/28/2010. FINDINGS: Cardiac silhouette and pulmonary vasculature are unremarkable. Mediastinum is midline with aortic calcification. No lobar consolidation or evidence of pneumothorax. Left shoulder prosthesis partially visualized. Ca rdiac monitor leads overlie the chest. IMPRESSION : Atherosclerosis. No active cardiopulmonary abnormalities are otherwise demonstrated.
[2020-02-01] MEDS ORDERED: Ondansetron PF 4 MG/2 ML Vial IVP PRN (22:25)
[2020-02-01] MEDS ORDERED: hydrALAZINE 20 MG/ML VIAL SLOW IVP PRN (22:25)
[2020-02-01] MEDS ORDERED: Dextrose 50% Abboject 50 ML SYRINGE SLOW IVP PRN (22:25)
[2020-02-01] MEDS ORDERED: Dextrose 5% in Water 1,000 ML IV PRN (22:25)
[2020-02-01] MEDS ORDERED: Morphine 2 MG/ML SYRINGE SLOW IVP PRN (22:30)
[2020-02-02] MEDS: Acetaminophen 325 MG TAB PO SCH ×5 (00:16→23:48)
[2020-02-02] MEDS: Sodium Chloride 0.9% 1,000 ML IV SCH ×4 (00:17→21:04)
[2020-02-02] MEDS ORDERED: cloNIDine 0.1 MG TAB PO PRN (00:17)
[2020-02-02] MEDS: Cyclobenzaprine 10 MG TAB PO PRN (00:17)
[2020-02-02 01:27] VITALS: BMI 29.9
[2020-02-02] MEDS: Levothyroxine Sodium 75 MCG TAB PO SCH (05:25)
--- NOTE | 2020-02-02 05:51 | HP ---
REQUESTING PHYSICIAN: Dr Paresh Anaya. CONSULTING PHYSICIAN: Dr. Brijesh Messer. ATTENDING PHYSICIAN: Dr. Chapin Reddy. HISTORY OF PRESENT ILLNESS: Ms. Martinez is a 79-year-old female who presented to the ED for evaluation of left hip pain after a fall. The patient was transferred from [facility]. The patient reports she was walking at home, tripped and fell on her left side. After the fall, she experienced left hip pain and unable to bear weight. She did not have loss of consciousness or hit her head. Did not report pain to other parts of the body. Upon arrival in the ED, the patient is alert and awake. Vital signs stable. GCS 15. Complained of left hip pain. REVIEW OF SYSTEMS: Noncontributory except per HPI. PAST MEDICAL HISTORY: Includes multiple medication allergies, hypothyroidism, Christiano thyroiditis, hypertension. PAST SURGICAL HISTORY: Includes knee surgery, right hip replacement, shoulder surgery. SOCIAL HISTORY: The patient lives at home with her spouse. Denies alcohol use. Denies drug use. Denies smoking history. ALLERGIES: ALLOPURINOL, ATORVASTATIN, CELECOXIB, CODEINE, HYDROCODONE, , MYELOGRAM DYE, PHENYTOIN, SULFA, TRAMADOL. CURRENT MEDICATIONS: 1. Metoprolol. 2. Amlodipine. 3. Synthroid. 4. Liothyronine. 5. Lovastatin. 6. Aspirin. 7. Clonidine. PHYSICAL EXAMINATION: GENERAL: Currently, the patient is lying in bed comfortable with no acute respiratory distress. SKIN: [place] and moist. VITAL SIGNS: Heart rate 77, respiratory rate 16, O2 saturation 98% on room air, blood pressure is 148/66, temperature 98. HEENT: Atraumatic. No bruising. No tender to palpation. Pupils 3 mm, equal bilaterally, reactive to light. NECK: Trachea midline. Not tender to palpation. CHEST: Atraumatic. No bruising. Not tender to palpation. LUNGS: Clear bilaterally. HEART: Regular rate and rhythm. ABDOMEN: Soft, nondistended. Bowel sounds active. PELVIS: Stable. EXTREMITIES: Left hip pain and limited range of motion due to pain, but neurovascularly intact x4. Bilateral upper extremities, normal range of motion and right lower extremity normal range of motion. NEUROLOGY: No focal neurology deficits. LABORATORY DATA: Initial workup shows white count 6.3, hemoglobin 14.6. Chemistry; sodium 143, potassium 3.9, glucose is 174, creatinine Pelvis x-ray shows impacted subcapital fracture of the left femoral neck. ASSESSMENT: 1. Status post ground level fall. 2. Left hip fracture. 3. History of hypothyroid. 4. Hypertension. PLAN: Patient will be admitted to [facility] for pain control. Initiate gastritis, nonpharmacological DVT prophylaxis. The patient will be n.p.o. at midnight. Dr. Messer is notified and Dr. Messer will meet up with the patient tomorrow to discuss surgical option. Postop, the patient will need to go to physical therapy, occupational therapy. Anticipate placement in rehabilitation facility. Dr. Reddy is notified. Job ID: [id number]
[2020-02-02] MEDS ORDERED: Levothyroxine Sodium 88 MCG TAB PO SCH (06:00)
[2020-02-02] MEDS ORDERED: CEFAZOLIN 2 GM in Premix Bag 1 BAG IVPB SCH (08:15)
--- NOTE | 2020-02-02 08:37 | CON ---
DATE OF CONSULTATION: This is Emeterio Villa PA-C dictating a report for Brijesh Messer MD. HISTORY OF PRESENT ILLNESS: We were asked by Trauma to see the patient. The patient was in her normal state of health. She resides out in [place] when she got up, fell, landing on her left side, fracturing her left hip. She has had many falls she states. She also has had some pain in her left upper arm, but this is much less than her hip. Any movement right now causes pain. Otherwise, at rest, she is doing okay. She does wear Life Alert for her numerous falls. She did hit her head mildly, but had no loss of consciousness. PAST MEDICAL HISTORY: Positive for hypothyroidism Christiano thyroiditis, hypertension. PAST SURGICAL HISTORY: Knee surgery, right hip replacement, shoulder surgery. SOCIAL HISTORY: Lives in a skilled facility with her spouse. No alcohol, nicotine, or drug use. ALLERGIES: ALLOPURINOL, ATORVASTATIN, CELECOXIB, CODEINE, HYDROCODONE, PYELOGRAM DYE, PHENYTOIN, SULFA, TRAMADOL. CURRENT MEDICATIONS: 1. Metoprolol. 2. Amlodipine. 3. Synthroid. 4. Liothyronine. 5. Lovastatin. 6. Aspirin. 7. Clonidine. FAMILY HISTORY: For this visit is noncontributory. REVIEW OF SYSTEMS: She is awake, alert. Only complaint is that left hip pain and a little bit of left upper extremity pain where there is some obvious bruising. Rest of review of systems negative. PHYSICAL EXAMINATION: GENERAL: Well-nourished, well-developed female, resting in a bed in room 3338, in no acute distress. Speech clear. Affect is very pleasant. Answers questions appropriately. Alert and oriented x3. HEENT: Normal exam. Face is symmetric. Tongue is midline. Head is normocephalic. NECK: Trachea is midline, soft, nontender. LUNGS: Respiratory rate 16, no acute distress EXTREMITIES: Upper extremities equal in size, shape, symmetry, normal bulk and tone with the exception of the left upper extremity on the shoulder deltoid area. She does have some bruising and a little bit tender to palpation, but she is able to move both arms equally and bilateral upper extremity strength. Sensations are intact. Lower extremities, the left lower extremity is mildly shortened, otherwise some redness to the area where she fell and early signs of bruising and a little bit of edema and tenderness to palpation. Legs appear to be equal in size, shape, symmetry, normal bulk and tone. She is able to wiggle both of her legs and toes and has good sensations. ASSESSMENT: Left hip fracture/femoral neck fracture. PLAN: She will need a hemiarthroplasty. I did talk to the patient. She would prefer to have Dr. Murray do her case. He has done all of her other orthopedic surgeries, but currently he is out of town. The patient is currently n.p.o. We will get her consented for hemiarthroplasty and add her on surgery schedule this afternoon around 1:30. I have informed the patient about the procedure time. Her questions and concerns have been addressed and answered, and she is amenable to go forth with surgery. I have let her know that Dr. Messer and myself will be doing the surgery and we will take good care of her and Dr. Murray sent his regards. Job ID: [id number]
[2020-02-02 08:45] LABS: #Eosinphils 0.2 thou/uL (0.0-0.7); #Monocytes 0.6 thou/uL (0.11-0.59); #Neutrophils 6.4 thou/uL (1.40-6.50); %Basophils 0.3 % (0.0-1.0); %Eosinophils 1.9 % (0.0-10.0); %Lymphocytes 12.2 % (21.0-51.0); %Monocytes 6.9 % (0.0-10.0); %Neutrophils 78.8 % (42.0-75.0); Mean Corpuscular HGB CONC 32.7 g/dL (32.0-36.0); Mean Corpuscular Hemoglobin 32.9 pg (27.0-31.0); Mean Platelet Volume 7.7 fL (7.4-10.4); Platelet Count 153 thou/uL (130-400); RBC Distribution Width 12.2 % (11.5-14.5); Red Blood Cell (RBC) Count 4.25 mill/uL (4.20-5.40); White Blood Cell (WBC) Count 8.1 thou/uL (4.8-10.8)
[2020-02-02] MEDS ORDERED: cloNIDine 0.1mg/24 Hour PATCH TD SCH (09:00)
[2020-02-02] MEDS ORDERED: [UNRECOGNIZED DRUG - OTHER] PO SCH (09:00)
[2020-02-02 09:04] LABS: Anion Gap 12 mmol/L (10-20); BUN (Urea Nitrogen) 22 mg/dL (9.8-20.1); Calc. Creatinine Clearance 48 mL/min (70-130); Calcium 8.7 mg/dL (7.8-10.44); Carbon Dioxide 25 mmol/L (23-31); Chloride 108 mmol/L (98-107); Estimated GFR-MDRD 46; Glucose 94 mg/dL (83-110); Magnesium 1.7 mg/dL (1.6-2.6); Phosphorus 2.9 mg/dL (2.3-4.7); Potassium 3.6 mmol/L (3.5-5.1); Sodium 141 mmol/L (136-145)
[2020-02-02] MEDS: Famotidine 20 MG TAB PO SCH (09:06)
[2020-02-02] MEDS: Liothyronine Sodium 5 MCG TAB PO SCH (09:06)
[2020-02-02] MEDS: Hydrochlorothiazide 25 MG TAB PO SCH (09:07)
[2020-02-02] MEDS: Losartan 25 MG TAB PO SCH (09:07)
[2020-02-02] MEDS: Amlodipine 5 MG TAB PO SCH (09:08)
[2020-02-02] MEDS: Polyethylene Glycol 3350 17 GM Packet PO SCH (09:12)
[2020-02-02] MEDS: Senokot S 8.6-50 MG TAB PO SCH ×2 (09:22→21:05)
[2020-02-02] MEDS: Gabapentin 100 MG CAP PO SCH ×2 (09:23→21:05)
[2020-02-02] MEDS ORDERED: PROPOFOL 200 MG/20 ML VIAL ONE (09:29)
[2020-02-02] MEDS ORDERED: Glycopyrrolate 0.2 MG/ML 5 ML SYRINGE ONE (09:29)
[2020-02-02] MEDS ORDERED: Rocuronium Bromide 10 MG/ML (10ML VIAL) ONE (09:29)
[2020-02-02] MEDS ORDERED: Succinylcholine Chloride 20 MG/ML 10 ml SYRINGE FS ONE (09:29)
[2020-02-02] MEDS ORDERED: PHENYLEPHRINE-NS 100 MCG/ML 10 ML SYRINGE ONE (09:29)
[2020-02-02] MEDS ORDERED: Lidocaine 1% PF 5 ML VIAL ONE (09:29)
[2020-02-02] MEDS ORDERED: Magnesium 2 GM/50 ML 2 GM in Premix Bag 1 BAG IVPB SCH (11:45)
--- NOTE | 2020-02-02 11:51 | PRG ---
DATE OF SERVICE: 02/02/2020 HISTORY OF PRESENT ILLNESS: The patient is currently on the surgical floor. She was admitted yesterday, status post a ground level fall, in which she sustained a left femoral neck fracture. She has been n.p.o. since midnight and is awaiting surgical intervention today. She had no issues overnight. Her pain was controlled. PHYSICAL EXAMINATION: VITAL SIGNS: Temperature 97.9, heart rate 61, blood pressure 135/72, respirations 16, oxygen saturation is 94% on 2 L via nasal cannula. GENERAL: The patient is resting comfortably in bed. She is awake, alert, conversant, and appropriate. [place] Coma Scale is 15. HEENT: Unremarkable. LUNGS: Clear to auscultation bilaterally. Good inspiratory and expiratory effort. HEART: Regular rate and rhythm. ABDOMEN: Soft, flat, nontender with active bowel sounds. EXTREMITIES: Neurovascularly intact x4. LABORATORY FINDINGS: White blood cell count 8.1, hemoglobin 14.0, hematocrit 42.7, platelets 153. Sodium 141, potassium 3.6, chloride 108, CO2 of 25, BUN 22, creatinine 1.15, glucose 94, magnesium 1.7, phosphorus 2.9. IMAGING STUDIES: There are no radiographs to review this morning. ASSESSMENT: 1. Status post ground level fall. 2. Left femoral neck fracture. 3. History of hypothyroidism and hypertension. 4. Acute hypomagnesemia. PLAN: Plan will be to continue n.p.o. status, await surgery, and postoperatively we will begin physical and occupational therapy and discuss placement. The patient will also have magnesium replaced this morning. The evaluation and examination were done with Dr. Dugan this morning during rounds. Job ID: [id number]
[2020-02-02] MEDS ORDERED: Fentanyl 100 MCG/2 ML VIAL ONE ×2 (13:19→15:46)
[2020-02-02] MEDS ORDERED: Ondansetron HCl/PF 4 MG/2 ML Vial IVP PRN (15:28)
[2020-02-02] MEDS ORDERED: Promethazine HCl 25 MG/ML VIAL SLOW IVP PRN (15:28)
[2020-02-02] MEDS ORDERED: Promethazine HCl 25 MG/ML VIAL IM PRN (15:28)
--- NOTE | 2020-02-02 16:25 | RAD ---
LEFT HIP TWO VIEWS: 02/02/20 HISTORY: Left hip fracture. FINDINGS/IMPRESSION: Interval postop changes of left hip arthroplasty are seen in good position and alignment since exam o f previous day. POS: HILARY
--- NOTE | 2020-02-02 16:26 | RAD ---
AP PELVIS: 02/02/20 HISTORY: Left hip fracture. FINDINGS/IMPRESSION: Bilateral hip arthroplasties are seen in good position and alignment. The left hip arthroplasty has b een placed since the previous day's exam. POS: HILARY
[2020-02-02] MEDS: Potassium Chloride 20 MEQ TAB PO SCH (16:48)
[2020-02-02] MEDS: CEFAZOLIN 2 GM in Premix Bag 1 BAG IVPB SCH (21:04)
--- NOTE | 2020-02-03 01:26 | PRG ---
DATE OF SERVICE: 02/02/2020 SUBJECTIVE: Ms. Martinez remains in surgical floor. The patient was seen on round this evening. The patient voiced no concern. She reports pain is well controlled. She is able to work with physical therapy and occupational therapy. Her vital signs are stable. The pain is well controlled. She tolerates her regular diet. OBJECTIVE: GENERAL: Currently, the patient is lying in bed comfortable with no acute respiratory distress. VITAL SIGNS: Stable. LUNGS: Clear bilaterally. HEART: Regular rate and rhythm. ABDOMEN: Soft, nondistended. EXTREMITIES: Neurovascularly intact x4. Postop dressing clean, dry, and intact. ASSESSMENT: 1. Status post ground level fall. 2. Left femoral neck fracture status post open reduction and internal fixation of left femoral neck fracture. 3. History of hypothyroidism, hypertension. PLAN: Continue supportive care. Continue pain control. Continue working with physical therapy and occupational therapy. Await for placement plan. Continue DVT prophylaxis. Job ID: [id number]
[2020-02-03] MEDS: Sodium Chloride 0.9% 1,000 ML IV SCH ×2 (04:59→08:08)
[2020-02-03] MEDS: Acetaminophen 325 MG TAB PO SCH (05:38)
[2020-02-03] MEDS: Levothyroxine Sodium 75 MCG TAB PO SCH (05:38)
[2020-02-03] MEDS: CEFAZOLIN 2 GM in Premix Bag 1 BAG IVPB SCH ×2 (05:39→15:37)
[2020-02-03 06:14] LABS: #Eosinphils 0.3 thou/uL (0.0-0.7); #Lymphocytes 0.8 thou/uL (1.20-3.40); #Monocytes 0.8 thou/uL (0.11-0.59); #Neutrophils 7.1 thou/uL (1.40-6.50); %Basophils 0.2 % (0.0-1.0); %Eosinophils 3.1 % (0.0-10.0); %Lymphocytes 9.2 % (21.0-51.0); %Monocytes 8.6 % (0.0-10.0); %Neutrophils 78.9 % (42.0-75.0); Hemoglobin 11.8 g/dL (12.0-16.0); Mean Corpuscular HGB CONC 32.9 g/dL (32.0-36.0); Mean Corpuscular Hemoglobin 32.7 pg (27.0-31.0); Mean Corpuscular Volume 99.6 fL (78.0-98.0); Mean Platelet Volume 8.1 fL (7.4-10.4); Platelet Count 134 thou/uL (130-400); RBC Distribution Width 12.1 % (11.5-14.5); Red Blood Cell (RBC) Count 3.62 mill/uL (4.20-5.40); White Blood Cell (WBC) Count 8.9 thou/uL (4.8-10.8)
[2020-02-03 06:33] LABS: Anion Gap 12 mmol/L (10-20); BUN (Urea Nitrogen) 16 mg/dL (9.8-20.1); Calc. Creatinine Clearance 55 mL/min (70-130); Calcium 8.2 mg/dL (7.8-10.44); Carbon Dioxide 23 mmol/L (23-31); Chloride 106 mmol/L (98-107); Estimated GFR-MDRD 53; Glucose 90 mg/dL (83-110); Magnesium 2.1 mg/dL (1.6-2.6); Phosphorus 2.5 mg/dL (2.3-4.7); Potassium 3.7 mmol/L (3.5-5.1); Sodium 137 mmol/L (136-145)
[2020-02-03] MEDS: Hydrochlorothiazide 25 MG TAB PO SCH (08:10)
[2020-02-03] MEDS: Losartan 25 MG TAB PO SCH (08:10)
[2020-02-03] MEDS: Liothyronine Sodium 5 MCG TAB PO SCH (08:10)
[2020-02-03] MEDS: Amlodipine 5 MG TAB PO SCH (08:11)
[2020-02-03] MEDS: Famotidine 20 MG TAB PO SCH (08:11)
[2020-02-03] MEDS: Potassium Chloride 20 MEQ TAB PO SCH (08:12)
[2020-02-03] MEDS: Gabapentin 100 MG CAP PO SCH ×2 (08:12→21:01)
[2020-02-03] MEDS: Cyclobenzaprine 10 MG TAB PO PRN (08:13)
[2020-02-03] MEDS: Polyethylene Glycol 3350 17 GM Packet PO SCH (08:14)
[2020-02-03] MEDS: Senokot S 8.6-50 MG TAB PO SCH ×2 (08:14→21:01)
[2020-02-03] MEDS: Aspirin 81 mg Enteric Coated Tablet PO SCH ×2 (08:35→21:00)
--- NOTE | 2020-02-03 09:49 | OP ---
DATE OF PROCEDURE: 02/02/2020 PREOPERATIVE DIAGNOSIS: Left femoral neck fracture. POSTOPERATIVE DIAGNOSIS: Left femoral neck fracture. PROCEDURE PERFORMED: Left hip hemiarthroplasty. ANESTHESIA: General. INSTITUTION LIBRARIAN: Allen. ESTIMATED BLOOD LOSS: 200 mL. IMPLANTS: User[employer] system was used with a size 6 Evans femoral stem, a 28 x 47 bipolar cup, and a +1.5 femoral head. COMPLICATIONS: None. DRAINS: None. SPECIMENS: None. OUTCOME: Stable hemiarthroplasty. INDICATIONS FOR PROCEDURE: The patient is a 79-year-old lady, status post ground level fall sustaining a displaced left femoral neck fracture. After discussion with the patient including risks and benefits, we have decided to proceed with hemiarthroplasty. Informed consent has been obtained. I believe, all questions have been answered. DESCRIPTION OF PROCEDURE: The patient was brought to the operating room and a time-out performed, followed by induction of general anesthesia. Next, she was positioned in the right lateral decubitus position, and a sterile prep and drape performed of the left lower extremity. Next, a curvilinear incision was made centered over the greater trochanter. After the skin was sharply incised, dissection was carried down through the subcutaneous fat to the level of the fascia dago and tensor fascia. This structure was incised in line with the skin incision and then reflected anteriorly and posteriorly revealing the underlying trochanteric bursa. The bursal tissue was swept off the short external rotators and then an elevator was passed under the abductors. The piriformis superior and inferior gemelli were identified and released off the posterior aspect of the femur. These were tagged and reflected posteriorly revealing the underlying joint capsule. The capsule was entered using a T capsulotomy incision with the leaflets tagged for eventual repair. Next, the femoral head was removed with a T-handle corkscrew device and then measured on the back table for appropriate bipolar cup placement. An oscillating saw was used to make a femoral neck cut. Next, a box chisel was used to open the proximal femoral canal. This was followed by a T-handle awl and then lateralizing reamer. Progressive T-handle awls were passed down the shaft up to a size 5 and then broaching started at size 3 and continued up to size 5. The size 5 broach was left in place and then a trial reduction was performed with a +1.5 head component. Her hip was found to be quite stable, and clinically, it was felt that leg lengths were equalized. The hip was then dislocated and the trial components removed. The wound was then irrigated with 2 L of normal saline using Pulsavac and then the final size 5 stem introduced in a press-fit fashion, followed by application of the bipolar head to the stem with reduction of the hip. The hip again was found to be very stable. The capsule was then reapproximated with #2 Vicryl and the short external rotators reattached to the posterior aspect of the femur using #2 Vicryl. #2 Vicryl also used for the fascia dago and tensor fascia, followed by 0 Vicryl for the Montse fascia, 2-0 Vicryl subcutaneously, and michael for the skin. Xeroform gauze and tape dressing were applied to the lateral thigh, and then the patient was transferred to recovery room in stable condition. There were no complications. The patient tolerated the procedure well. Job ID: [id number]
[2020-02-03] MEDS ORDERED: Ibuprofen 600 MG TAB PO PRN (10:43)
[2020-02-03] MEDS ORDERED: Ibuprofen 800 MG TAB PO PRN (10:58)
[2020-02-03] MEDS ORDERED: Acetaminophen 325 MG TAB PO SCH (10:59)
[2020-02-03] MEDS: Acetaminophen 500 MG TAB PO SCH ×2 (11:58→17:36)
--- NOTE | 2020-02-03 14:11 | PRG ---
DATE OF SERVICE: 02/03/2020 SUBJECTIVE: The patient is currently on the surgical floor. She is status post ground level fall, in which she sustained a left femoral neck fracture. She is postop day 1, status post left hemiarthroplasty. She had no issues overnight. She is tolerating a diet. Her pain medications have been adjusted, which are slightly complicated by extensive allergy list. The patient was able to work with Physical and Occupational Therapy. She is currently awaiting placement decision. PHYSICAL EXAMINATION: VITAL SIGNS: Temperature 98.1, heart rate 69, blood pressure 120/71, respirations 14, oxygen saturation 92% on 2 L via nasal cannula. GENERAL: The patient is resting comfortably in bed. She is awake, alert, conversant, and appropriate. She has just finished working with Physical Therapy. HEENT: Unremarkable. LUNGS: Clear to auscultation bilaterally. The patient was able to get to 1200 on her incentive spirometry. HEART: Regular rate and rhythm. ABDOMEN: Soft, nontender with active bowel sounds. EXTREMITIES: Neurovascularly intact x4. LABORATORY FINDINGS: White blood cell count 8.9, hemoglobin 11.8, hematocrit 36.0, and platelets 134. Sodium 137, potassium 3.7, chloride 106, CO2 of 23, BUN 16, creatinine 1.00, glucose 90, magnesium 2.1, and phosphorus 2.5. IMAGING STUDIES: There are no radiographs reviewed this morning. ASSESSMENT AND PLAN: 1. Status post ground level fall. 2. Status post left hip hemiarthroplasty postop day 1. 3. History of hypothyroidism and hypertension. 4. Acute kidney injury, resolved. 5. Hypomagnesemia, resolved. PLAN: Plan will be to encourage physical and occupational therapy, pain control, pulmonary toilet, gastritis and mechanical VTE prophylaxis. We will start chemical VTE prophylaxis today and await placement decision. The patient was evaluated this morning with Dr. Dugan. Job ID: [id number]
[2020-02-03] MEDS ORDERED: Sodium Chloride 0.9% 500 ML IVPB SCH (20:45)
[2020-02-03] MEDS ORDERED: Hydrocortisone Sod Succ/PF 100 mg/2 ml Vial IVP SCH (20:45)
[2020-02-04] MEDS: Acetaminophen 500 MG TAB PO SCH ×3 (00:14→12:22)
[2020-02-04 00:34] LABS: Bacteria/HPF 1+ HPF (None Seen); Bilirubin Negative (Negative); Blood, Urine 1+ (Negative); Clarity Clear (Clear); Glucose, Urine (Dipstick) Normal (Negative); Leukocyte 500 Leu/uL (Negative); Nitrite Negative (Negative); Protein, Urine (Dipstick) Negative (Neg-Trace); RBC/HPF 0-3 HPF (0-3); Squamous Epithelial 0-3 HPF (0-3); Urobilinogen Normal mg/dL (Less than 2); WBC/HPF 21-50 HPF (0-3)
--- NOTE | 2020-02-04 01:30 | PRG ---
DATE OF SERVICE: 02/03/2020 SUBJECTIVE: Ms. Martinez remained in surgical floor. The patient was seen on round this evening. The patient reports pain is well controlled. She is able to work with physical therapy and occupational therapy. She tolerated with her diet. The patient reported to have an episode of retention, in which she underwent a straight in- and out catheterization. Today, the patient not able to void and her bladder scan > 400ml. The patient's blood pressure was soft and 500 normal saline bolus and continue to monitor the patient's blood pressure closely. OBJECTIVE: GENERAL: Currently, the patient is lying on bed comfortable with no acute respiratory distress. VITAL SIGNS: Temperature 97.5, heart rate 63, respiratory rate 14, O2 saturation 90% on 1.5 L, and blood pressure 102/46. LUNGS: Clear bilaterally. HEART: Regular rate and rhythm. ABDOMEN: Soft, nondistended. EXTREMITIES: Neurovascularly intact x4. Postop dressing clean, dry, intact. NEUROLOGIC: No focal neurologic deficits. ASSESSMENT: 1. Status post ground level fall. 2. Left hip fracture, status post open reduction and internal fixation of left hip fracture. 3. History of hypothyroidism, hypertension. 4. Acute kidney injury, resolved. PLAN: Plan will be to continue supportive care. Continue pain control. We will reconcile home medication especially for urinary retention. Await placement in [facility] facility. Continue working on physical therapy and occupational therapy. Anticipate discharge in the next 24 to 48 hours. Job ID: [id number] MTDD
[2020-02-04] MEDS: Levothyroxine Sodium 75 MCG TAB PO SCH (06:42)
[2020-02-04] MEDS: Hydrocortisone Sod Succ/PF 100 mg/2 ml Vial IVP SCH ×2 (06:42→12:22)
[2020-02-04] MEDS ORDERED: Nitrofurantoin Monohyd/M-Cryst 100 MG CAP PO SCH (09:00)
[2020-02-04] MEDS ORDERED: Senokot S 8.6-50 MG TAB PO SCH (09:00)
--- NOTE | 2020-02-04 09:49 | EKG ---
Test Reason : Blood Pressure : / mmHG Vent. Rate : 071 BPM Atrial Rate : 071 BPM P-R Int : 144 ms QRS Dur : 070 ms QT Int : 396 ms P-R-T Axes : 117 -24 041 degrees QTc Int : 430 ms Sinus rhythm with occasional Premature ventricular complexes Junctional ST depression, probably normal Borderline ECG Confirmed by MYRNA TAI DO ([id number]), movie editor CHANDAN COHEN ([id number]) on 02/04/2020 9:49:33 AM Referred By: Confirmed By:MYRNA TAI DO
[2020-02-04] MEDS: Polyethylene Glycol 3350 17 GM Packet PO SCH (09:57)
[2020-02-04] MEDS: Famotidine 20 MG TAB PO SCH (09:57)
[2020-02-04] MEDS: Gabapentin 100 MG CAP PO SCH (09:58)
[2020-02-04] MEDS: Liothyronine Sodium 5 MCG TAB PO SCH (09:58)
[2020-02-04] MEDS: Potassium Chloride 20 MEQ TAB PO SCH (09:58)
[2020-02-04] MEDS: Aspirin 81 mg Enteric Coated Tablet PO SCH (09:58)
[2020-02-04] MEDS: Losartan 25 MG TAB PO SCH (10:38)
[2020-02-04] MEDS: Hydrochlorothiazide 25 MG TAB PO SCH (10:38)
[2020-02-04] MEDS: Amlodipine 5 MG TAB PO SCH (10:38)
[2020-02-04 11:10] VITALS: BP 115/64; TEMP 97.4
[2020-02-06] MEDS ORDERED: cloNIDine 0.1mg/24 Hour PATCH TD SCH (09:00)
--- NOTE | 2020-02-06 10:34 | DIS ---
DATE OF ADMISSION: 02/01/2020 DATE OF DISCHARGE: 02/04/2020 ADMISSION DIAGNOSES: 1. Status post ground level fall. 2. Left hip fracture. 3. History of hypothyroidism and hypertension. CONSULTATIONS: Orthopedics, Dr. Messer. PROCEDURES: Left hip hemiarthroplasty. SUMMARY: The patient is a 79-year-old woman who presented to the emergency department after a ground level fall. She was initially taken to the facility in [facility] where she underwent evaluation and examination and was noted to have a left femoral neck fracture. She was subsequently transferred to our facility for admission and orthopedic consultation and repair. She tolerated her procedure well. She was eventually transferred to [facility] for continuation of care. At the time of discharge, she was progressing with physical and occupational therapies. She was tolerating a diet and her pain was controlled. She will follow up with Dr. Messer in 2 to 3 weeks, sooner as needed. Job ID: [id number]
== END 2020-02-04 15:15 | disposition swing bed (61) | DRG 470 ==
LOC: ERS 20:28 → SURG A 22:28
PROVIDERS: ADMIT Surgery; ATTEND Surgery
PROC: 0SRS03A Replacement of Left Hip Joint, Femoral Surface with Ceramic Synthetic Substitute, Uncemented, Open Approach (ICD-10-PCS; principal; 2020-02-02)
DX: S72.002A Fracture of unspecified part of neck of left femur, initial encounter for closed fracture (principal); N17.9 Acute kidney failure, unspecified; W01.0XXA Fall on same level from slipping, tripping and stumbling without subsequent striking against object, initial encounter; Y92.009 Unspecified place in unspecified non-institutional (private) residence as the place of occurrence of the external cause; Z96.641 Presence of right artificial hip joint; E03.9 Hypothyroidism, unspecified; I10 Essential (primary) hypertension; E83.42 Hypomagnesemia; Z88.2 Allergy status to sulfonamides; Z88.8 Allergy status to other drugs, medicaments and biological substances; Z88.6 Allergy status to analgesic agent; Z91.041 Radiographic dye allergy status; Z79.899 Other long term (current) drug therapy; Z79.82 Long term (current) use of aspirin; Z79.890 Hormone replacement therapy
CPT/HCPCS: 36415; 71045; 72170; 80048; 81001; 82533; 83735; 84100; 85025; 86850; 86900; 86901; 93005; 94640; 96374; 96375; J0690; J1720; J2001; J2270; J2405; J2704; J3010; J3475; J7030; J7620

== ENCOUNTER 2020-10-22 09:45 | Outpatient (CLI) | payer MEDICARE, OTHER ==
--- NOTE | 2020-10-22 12:52 | RAD ---
LUMBAR SPINE 2 VIEWS: HISTORY: Lumbar radiculopathy. COMPARISON: 07/20/2018 films. FINDINGS: Postoperative changes again noted at L4-5 with pedicle screws and interbody implant. These devices u nchanged in position and appearance when compared to the prior exam. Lumbar vertebrae maintain heigh t. There is a slight anterolisthesis at L4-5 which is stable. Disk spaces are preserved. Mild degenera tive spurring. There is mild facet hypertrophy which appears stable. IMPRESSION: Stable postoperative and degenerative changes of the lumbar spine when compared to prior study of 07/20/2018. POS: [facility]
== END 2020-10-22 09:46 | disposition home or self-care (01) ==
LOC: TBSIIMAG 09:45
PROVIDERS: ATTEND Neurological Surgery
DX: M47.26 Other spondylosis with radiculopathy, lumbar region (principal); Z98.890 Other specified postprocedural states
CPT/HCPCS: 72100

== ENCOUNTER 2020-11-12 07:43 | Outpatient (CLI) | payer MEDICARE, OTHER ==
--- NOTE | 2020-11-12 10:04 | RAD ---
LUMBAR SPINE 3 VIEWS: Date: 11/12/2020 HISTORY: Lumbar radiculopathy, prior surgery, chronic low back pain and radiculopathy. COMPARISON: 10/22/2020. FINDINGS: Upright neutral, flexion, extension lateral views of lumbar spine performed. Postop laminectomy and f usion changes at L4-L5. Heterogeneous bony demineralization. No evidence for abnormal anterior or ret rolisthesis or abnormal translation between flexion and extension. IMPRESSION: Stable postoperative lumbar spine. POS: OFF
--- NOTE | 2020-11-12 10:22 | MRI ---
MR the lumbar spine without contrast: 11/12/2020 History: Chronic low back pain with radiculopathy, right greater than left COMPARISON: 02/22/2018 TECHNIQUE: Multiplanar multisequence MR images were obtained of lumbar spine without IV contrast FINDINGS: On the basis of 5 lumbar type vertebral bodies, conus medullaris terminates at [id number] level. Sagittal STIR imaging demonstrates no focal area of osseous marrow edema. Increased STIR signal is no kei posterior to the thecal sac at the L4 and L5 level and within the posterior right paraspinal soft tissues at the L4-5 level, likely on the basis of postoperative change as there is evidence of b ilateral laminectomy changes at L3-4 and L4-5. Incompletely assessed posterior fusion hardware with bilateral pedicle screws present at L4-5. There is an L4-5 intervertebral disc device. T12-L1:There is mild bilateral facet hypertrophy, left greater than right. There is no significant ce ntral canal or neural foraminal stenosis. L1-2:Minimal disc bulge. Mild bilateral facet hypertrophy. No significant central canal or neural for aminal stenosis. There is a benign hemangioma within the L1 vertebral body. L2-3:There is disc space narrowing with disc desiccation and mild disc bulge. Mild bilateral facet hy pertrophy. Mild central canal stenosis and bilateral neural foraminal stenosis. L3-4:Bilateral laminectomy changes are present with no central canal stenosis. There is disc space na rrowing with disc desiccation and mild disc bulge. Mild bilateral facet hypertrophy. Moderate right and mild left neural foraminal stenosis. L4-5: Bilateral laminectomy changes are present with no central canal stenosis. There is a very small fluid collection posterior to the thecal sac measuring 1.8 x 0.7 cm consistent with a nonspecific postoperative collection. Mild bilateral facet hypertrophy is present. Evaluation for neural foraminal stenosis is limited seco ndary to hardware artifact. Probable mild bilateral neural foraminal stenosis. L5-S1: No central canal stenosis. Bilateral facet hypertrophy present with mild bilateral neural fora criselda stenosis. Image retroperitoneal structures demonstrateincompletely imaged intrahepatic biliary dilation with th e dilation of the common bile duct measuring 1.1 cm, unchanged when compared to the 2018 exam. Multiple incompletely assessed renal cysts are noted bilaterally, similar when compared to the prior examination. IMPRESSION:Postoperative and degenerative changes within the lumbar spine as described above. Incompletely assessed intra-axial and extrahepatic biliary dilatation, grossly unchanged. Clinical co rrelation is required to evaluate for the significance of this finding. The gallbladder appears to be present and thus, biliary obstructive process is a possibility CODE T
--- NOTE | 2020-11-12 10:46 | MRI ---
MRI CERVICAL SPINE NONCONTRAST: Date: 11/12/2020 HISTORY: 80-year-old female with ICD-10: R27.0, ataxia. COMPARISON: 05/01/2010. FINDINGS: Vertebral body heights are maintained. No major bone marrow signal abnormality. No high grade subluxa tion. Apparently mildly hyperintense signal on sagittal T2 WI and STIR in the lower cervical cord is nonspecific, and it is uncertain whether it is artifact or real. Difficult to definitely confirm on a xial T2 WI. C1-2: No high grade central spinal canal stenosis. C2-3: Disc space maintained. No high grade facet DJD. Mild central spinal canal stenosis. No neural foraminal stenosis. C3-4: Interval development of moderate to severe disc space narrowing. The previously demonstrate fo araceli central disc herniation or disc-osteophyte complex is slightly larger and now indents the spinal cord to a greater degree than before. Moderate central spinal canal stenosis. Mild bilateral neural f oraminal stenosis. Moderate bilateral facet DJD. C4-5: Thickened ligamentum flavum. Small central focal disc protrusion or disc-osteophyte complex is slightly larger than before, and now abuts the ventral surface of the cord, whereas it did not previ ously. Moderate central spinal canal stenosis. No significant right neural foraminal stenosis. Mild t o moderate left neural foraminal stenosis. Mild disc space narrowing. Normal right facet joint. Mild to moderate left facet DJD. C5-6: New mild to moderate disc space narrowing. New slight retrolisthesis of C5 on C6, which, toget her with very shallow central and bilateral paracentral broad based disc-osteophyte complex, and mild ligamentum flavum thickening, results in moderate central spinal canal stenosis. Bilateral uncinate process osteophytes. Mild to moderate right neural foraminal stenosis. Moderate to severe left neural foraminal stenosis. Mild right and mild to moderate left facet DJD. C6-7: Disc space maintained. Small central disc protrusion is slightly larger than before. Mild cent ral spinal canal stenosis. Bilateral uncinate process osteophytes. Mild to moderate bilateral neural foraminal stenosis. Mild bilateral facet DJD. C7-T1: Disc space maintained. Mild bilateral facet DJD. No central spinal canal stenosis. Moderate b ilateral neural foraminal stenosis. IMPRESSION: 1. Cervical spondylosis (consisting of mild and moderate degenerative disc disease and mild and mode rate facet osteoarthrosis) has worsened at some levels since 05/01/2010. 2. This includes increase in size of the central disc herniation at C3-4 resulting in a greater degr ee of indentation of the spinal cord at that level. POS: [facility]
== END 2020-11-12 07:44 | disposition home or self-care (01) ==
LOC: TBSIIMAG 07:43
PROVIDERS: ATTEND Neurological Surgery
DX: R27.0 Ataxia, unspecified (principal); R29.898 Other symptoms and signs involving the musculoskeletal system; M47.812 Spondylosis without myelopathy or radiculopathy, cervical region; M50.21 Other cervical disc displacement, high cervical region; M47.26 Other spondylosis with radiculopathy, lumbar region; Z98.890 Other specified postprocedural states
CPT/HCPCS: 72100; 72141; 72148; 82565